=== PATIENT | male | born 1980 | race Caucasian/White ===

== ENCOUNTER 2018-10-02 15:19 | Outpatient (REF) | payer OTHER, SELFPAY ==
[2018-10-02 22:45] LABS: ALT 99 U/L (12-78); AST 127 U/L (15-37); Albumin 3.4 g/dL (3.4-5.0); Alkaline Phosphatase 103 U/L (46-116); Bilirubin, Direct 0.33 mg/dL (0.00-0.20); Bilirubin, Total 0.8 mg/dL (0.2-1.0); TSH (W/Ref FT4) 1.99 uIU/mL (0.358-3.74); Total Protein 6.7 g/dL (6.4-8.2)
== END 2018-10-02 15:39 ==
LOC: NCHCN 15:19
PROVIDERS: PCP Nurse Practitioner Family; Visit Provider Nurse Practitioner Family
DX: F41.8 Other specified anxiety disorders (principal); R79.89 Other specified abnormal findings of blood chemistry; L71.9 Rosacea, unspecified
CPT/HCPCS: 80076; 84443

== ENCOUNTER 2018-12-29 17:15 | Outpatient (REF) | payer OTHER, SELFPAY ==
[2018-12-29 20:58] LABS: Abs Immature Grans 0.01 k/cumm (0.0-0.09); Absolute Basophil Count 0.01 k/cumm (0.0-0.2); Absolute Eosinophil Count 0.05 k/cumm (0.0-0.7); Absolute Lymphocyte Count 1.13 k/cumm (1.2-3.4); Absolute Monocyte Count 0.65 k/cumm (0.11-0.7); Absolute Neutrophil Count 6.04 k/cumm (1.2-6.7); Basophils % 0.1; Eosinophils % 0.6; HCT 39.6 % (40.0-50.0); HGB 14.2 g/dL (13.5-17.5); Immature Grans % 0.1; Lymphocytes % 14.3; Mean Corp. HGB Concentration 35.9 g/dL (32.0-36.0); Mean Corpuscular Volume 103.1 fL (80-95); Mean Platelet Volume 10.2 fL (8.0-11.0); Monocytes % 8.2; Neutrophils % 76.7; Platelet Count 155 x1000/uL (130-400); RBC 3.84 m/cumm (4.50-6.00); RBC Distribution Width 14.9 % (11.8-14.1); White Blood Cell Count 7.89 k/cumm (4.4-10.8)
[2018-12-29 21:19] LABS: ALT 151 U/L (12-78); AST 163 U/L (15-37); Albumin 3.5 g/dL (3.4-5.0); Alkaline Phosphatase 173 U/L (46-116); Anion Gap 14.4 mmol/L (3-11); BUN 12 mg/dL (7-18); Bilirubin, Total 1.8 mg/dL (0.2-1.0); CO2 24.6 mmol/L (21.0-32.0); CREATININE 1.02 mg/dL (0.70-1.30); Calcium 9.3 mg/dL (8.5-10.1); Chloride 98 mmol/L (98-107); Glucose 95 mg/dL (70-100); Potassium 4.1 mmol/L (3.5-5.1); Sodium 137 mmol/L (136-145); TSH 3.06 uIU/mL (0.358-3.74); Total Protein 7.2 g/dL (6.4-8.2)
[2018-12-29 22:15] LABS: ETHANOL BLOOD < 3.0 mg/dL (<3)
== END 2018-12-29 17:35 ==
LOC: NCHCN 17:15
PROVIDERS: PCP Nurse Practitioner Family; Visit Provider Nurse Practitioner Family
DX: F10.10 Alcohol abuse, uncomplicated (principal)
CPT/HCPCS: 80053; 80320; 84443; 85025

== ENCOUNTER 2019-06-10 13:09 | Inpatient (IN) | payer OTHER, SELFPAY ==
[2019-06-10] VITALS (73 sets, daily range): BP systolic 101–141; BP diastolic 49–102; PULSE 66–173; RESP 11–25; TEMP 36.6–36.9; O2SAT 92–99
[2019-06-10] MEDS: LORazepam 2 MG/ML VIAL ×3 (14:10→19:55)
[2019-06-10 14:21] LABS: Abs Immature Grans 0.01 k/cumm (0.0-0.09); Absolute Basophil Count 0.02 k/cumm (0.0-0.2); Absolute Eosinophil Count 0.08 k/cumm (0.0-0.7); Absolute Lymphocyte Count 0.87 k/cumm (1.2-3.4); Absolute Monocyte Count 0.83 k/cumm (0.11-0.7); Absolute Neutrophil Count 6.76 k/cumm (1.2-6.7); Basophils % 0.2; Eosinophils % 0.9; HCT 39.1 % (40.0-50.0); HGB 13.5 g/dL (13.5-17.5); Immature Grans % 0.1; Lymphocytes % 10.2; Mean Corp. HGB Concentration 34.5 g/dL (32.0-36.0); Mean Corpuscular Hemoglobin 35.1 pg (27.0-33.0); Mean Corpuscular Volume 101.6 fL (80-95); Mean Platelet Volume 9.8 fL (8.0-11.0); Monocytes % 9.7; Neutrophils % 78.9; Platelet Count 160 x1000/uL (130-400); RBC 3.85 m/cumm (4.50-6.00); RBC Distribution Width 11.6 % (11.8-14.1); White Blood Cell Count 8.57 k/cumm (4.4-10.8)
[2019-06-10 14:30] LABS: ALT 139 U/L (16-63); AST 224 U/L (15-37); Albumin 3.2 g/dL (3.4-5.0); Alkaline Phosphatase 114 U/L (46-116); Anion Gap 12.2 mmol/L (3-11); BUN 6 mg/dL (7-18); CO2 26.8 mmol/L (21.0-32.0); CREATININE 0.77 mg/dL (0.70-1.30); Calcium 8.8 mg/dL (8.5-10.1); Chloride 99 mmol/L (98-107); Glucose 106 mg/dL (74-106); Magnesium 1.9 mg/dL (1.8-2.4); Potassium 3.3 mmol/L (3.5-5.1); Sodium 138 mmol/L (136-145); Total Protein 6.8 g/dL (6.4-8.2)
[2019-06-10] MEDS: MAGNESIUM SULFATE 8.12 MEQ, MULTIVITAMIN 10 ML, THIAMINE 100 MG, FOLIC ACID 1 MG in Nor... 168.867 MG IV (14:31)
[2019-06-10 14:40] LABS: ETHANOL BLOOD < 3.0 mg/dL (<3)
--- NOTE | 2019-06-10 16:01 | PDOC.MHCN_ITS ---
Date of service: 06/10/19 Time of Service: 15:46 Mental Health Crisis Note Presenting Issue How did you arrive at the ED and why did you come: Patient arrives to [facility] ED with chief complaint of nausea / shaking and issues in relation to ETOH withdrawal. Precipitating Factors Patient is a 38yo male with longstanding history of alcoholism (20+years). Patient reports that he consumes 2-3 glasses of wine per day and openly acknowledges that his alcoholism has reached the point where his general level of functioning has been compromised. He is currently seeking regular SA counseling / IOP referral and is not interesting in going back into rehab at time of assessment (Note: last reported rehab placement January 2019, [facility]). He denies current suicidal ideation, intent or plan and has no reported history of self-harm attempts or in-patient psychiatric treatment. Disposition BEHAVIOR: Appropriate in all interactions EYE CONTACT: Avoidant MOOD: Dysphoric / subdued AFFECT: Congruent to mood APPETITE: No reported issues SLEEP(trouble falling/staying asleep: No reported issues Plan Per request from patient, an SA/IOP referral through [facility] will be submitted and outreach will be scheduled once the information has been processed. Patient was provided additional resource lists - [place] [facility], [facility], [facility] Emergency Services contact information. Signature Clinician's Name/Title: Salomon Rubio, [facility] Emergency Clinician
--- NOTE | 2019-06-10 16:04 | ED.GENADUL_ITS ---
Discharge Plan Disposition Patient Disposition: [facility] INPATIENT Condition: Fair Discharge Details Chief Complaint: ETOHWithdr Clinical Impression: Alcohol withdrawal Admit Date/Time: 06/10/19 18:20 Admit Provider: Martin Dewitt Attending Provider: Martin Dewitt Primary Care Provider: Chasity Teixeira ED Provider: Sailaja Cochran Discharge Data Discharge Date/Time-TO BE ENTERED AT DEPARTURE: 06/10/19 21:28 Discharge Physician: Sailaja Cochran Medical Decision Making <ANTONY Nguyen - Last Filed: 06/12/19 21:30> This is a 38-year-old patient who presents for alcohol withdrawal. Patient admits to 2 drinks of wine daily although clearly has significant tremor and withdrawal symptoms at this time. Patient reports he has required detox in the past most recently in the summer. Patient reports he remained sober for approximately 2 weeks then began drinking smaller quantities. Patient reports he is drinking smaller quantities than prior to his recent detox however reports he did have a syncopal episode today and awoke in the bathtub laying flat. Patient denies obvious headache at this time. Patient reports his last drink was last evening. Patient is seeking alcohol detox. He is not very interested in inpatient detox but rather outpatient management. Patient is willing to consent to speaking with mental health regarding anxiety and arranging out patient counselors. Patient willing to speak with resource recovery engineer. Patient denies any significant medical concerns at this time. Denies chest pain difficulty breathing shortness breath or wheezing. Patient denies any fevers or chills. No recent upper respiratory symptoms. Patient provided Ativan 2 mg upon initial evaluation after he is noted to have hypertension as well as tremors on exam. Patient is also feeling quite nauseous at this time. No abdominal pain on exam. Breath sounds are clear. Patient speech is clear. He is accompanied by his father whom he lives with. Mental he alth and recovery special evaluations initiated. CIWA initiated. Patient reevaluated. Pending banana bag completion. Patient is still feeling quite tremulous and does not feel ready for discharge would rather continue oral fluids and Ativan. However patient does not want inpatient admission or detox placement. Spoke with mental health who will refer patient to outpatient programs. <Sailaja Cochran DO - Last Filed: 06/10/19 22:39> 1600 --please see Angle Arthur's note for initial presentation and plan. Patient is a 38-year-old male with a history of alcohol abuse presents with anxiety, nausea and shaking over the past 5 days. Patient states he generally drinks 4 to 5 glasses of wine daily for the past 5 years. States he has been decreasing this over the past week because he wants to stop drinking alcohol. He states he went to detox in [place] in January but started drinking shortly after discharge from there. Patient is no longer living with his and children since January and has been staying with his parents. He states he has thought about suicide in the past approximately 1 month ago in which she thought about taking a shot gun to his head. He does not currently have access to firearms in his residence. He denies current suicidal or homicidal ideation. He denies any visual or auditory hallucinations. Patient was given a banana bag and dose of Ativan shortly after arrival. His BP was mildly hypertensive but has had a normal heart rate. Patient admitted to a syncopal episode in the shower today in which he was standing under hot water and looked up and became dizzy and fell back. He denies any injury or pain due to this episode. He states he has not eaten for several days. Labs reviewed and note a potassium of 3.3, chronically elevated liver enzymes with moderate increase in AST. Alcohol level 0. He states his last drink was 8 PM last night. Case was endorsed to follow-up on CT head, EKG and patient response after finishing banana bag. Patient had declined admission since arrival and would rather go home with medications. 1644 --CT head negative. EKG notes a rate of 72, sinus with no acute ST-T wave ischemic changes. Upon my assessment, patient states he feels better. His heart rate and blood pressure within normal limits. He appears mildly tremulous but family states that this is much improved compared to how he has been for the past few days. He has no focal deficits or evidence of trauma on exam. Will give another dose of Ativan and a tray of food and reassess. Patient again states he does not want inpatient admission and prefer to go home with medications to help with detox. He was evaluated by mental health and legal recovery specialist here and was provided with outpatient detox information. 1809 --called to room for reevaluation as family states that patient is hallucinating. Family noted pt attempting to pet what he thought was their dog in the room. Patient had also thought that he was at a store and not at the hospital. Concern for worsening withdrawal. Discussed recommendations for admission and patient and family are agreeable with plan. 1819 --discussed with hospitalist -accepts patient for admission. 1929 --called to bedside for patient becoming somewhat restless and agitated. He was attempting to leave room to go out to his car to get his chew. He does not have a car here. He was able to be redirected and back onto the stretcher. He appeared to understand what we were trying to do and was agreeable with laying down. His heart rate was initially in the 140s and then decreased to 90s. Another dose of Ativan was given. 2114 --pt has remained calm and hemodynamically stable. Medical Records Medical records reviewed: Yes I reviewed the patient's medical records. Imaging Data Radiologic Study: Radiologist's impression: CT Head Without Contrast Exam date and time: 06/10/2019 4:20 PM Age: 38 years old Clinical history: Other: Syncope TECHNIQUE: Imaging protocol: Computed tomography of the head without contrast. Radiation optimization: All CT scans at this facility use at least one of these dose optimization techniques: automated exposure control; mA and/or kV adjustment per patient size (includes targeted exams where dose is matched to clinical indication); or iterative reconstruction. COMPARISON: No relevant prior studies available. FINDINGS: Brain: The ventricles and the cortical sulci are within normal limits. There is no evidence of acute hemorrhage, mass or shift. There is no evidence of an acute cortical or major vascular territory infarct. No abnormal extra-axial collections are identified. Ventricles: No significant ventricular enlargement/hydrocephalus. Bones/joints: There is no acute bony abnormality Sinuses: Retention cysts are seen in the left maxillary antrum. There is minimal sinus mucoperiosteal thickening and leftward deviation of the nasal septum. There is no evidence of discrete soft tissue mass or polyp within the nasal cavity. There is no significant sinus opacification or fluid level. Mastoid air cells: No significant mastoid opacification Soft tissues: Subcutaneous soft tissues are unremarkable IMPRESSION: No acute findings. Lab Data Lab results reviewed: Yes I reviewed the patient's lab results. Labs: Laboratory Tests Range/Units 06/10/19 06/10/19 06/10/19 14:13 14:13 14:13 WBC (4.4-10.8) k/cumm 8.57 RBC (4.50-6.00) m/cumm 3.85 L Hgb (13.5-17.5) g/dL 13.5 Hct (40.0-50.0) % 39.1 L MCV (80-95) fL 101.6 H MCH (27.0-33.0) pg 35.1 H MCHC (32.0-36.0) g/dL 34.5 RDW (11.8-14.1) % 11.6 L Plt Count (130-400) x1000/uL 160 MPV (8.0-11.0) fL 9.8 Immature Gran % 0.1 Neutrophils % 78.9 Lymphocytes % 10.2 Monocytes % 9.7 Eosinophils % 0.9 Basophils % 0.2 Absolute Neutrophils (1.2-6.7) k/cumm 6.76 H Absolute Lymphocytes (1.2-3.4) k/cumm 0.87 L Absolute Monocytes (0.11-0.7) k/cumm 0.83 H Absolute Eosinophils (0.0-0.7) k/cumm 0.08 Absolute Basophils (0.0-0.2) k/cumm 0.02 Sodium (136-145) mmol/L 138 Potassium (3.5-5.1) mmol/L 3.3 L Chloride (98-107) mmol/L 99 Carbon Dioxide (21.0-32.0) mmol/L 26.8 Anion Gap (3-11) mmol/L 12.2 H BUN (7-18) mg/dL 6 L Creatinine (0.70-1.30) mg/dL 0.77 Estimated GFR/1.73 m2 (mL/min/1.73m2) >= 60.00 Glucose (74-106) mg/dL 106 Calcium (8.5-10.1) mg/dL 8.8 Magnesium (1.8-2.4) mg/dL 1.9 Total Bilirubin (0.2-1.0) mg/dL 1.0 AST (15-37) U/L 224 H ALT (16-63) U/L 139 H Alkaline Phosphatase (46-116) U/L 114 Total Protein (6.4-8.2) g/dL 6.8 Albumin (3.4-5.0) g/dL 3.2 L Ethyl Alcohol (<3) mg/dL < 3.0 ECG Data Attestation: I personally reviewed and interpreted this ECG (s) as follows: Interpretation: Rate of 72, sinus, no acute ST elevation or depression. WV 136. QTc 462. QRS 84. HPI <ANTONY Nguyen - Last Filed: 06/12/19 21:30> General Date/Time Provider Initiated Documentation: 06/10/19 13:14 . HPI Narrative: This is a 38-year-old patient who presents for alcohol detox. Patient admits to drinking 2 glasses of wine a day however he presents with obvious tremor and hypertension and I suspect he is consuming more than 2 glasses of wine daily. Patient is accompanied by his father whom he lives with. Patient reports that today he had a syncopal episode while showering and awoke laying in the tub. Patient denies obviously striking his head. Patient denies headache or dizzi ness at this time. Patient reports his last drink was last night. Patient does admit to mild abdominal discomfort which is intermittent as well as nausea. Patient does admit to diarrhea. Patient denies use of any other drugs. Patient does report he has been to detox in the past, over the summer, remained sober for approximately 2 weeks and he reports since that time he has been drinking less than prior to going to detox however still is concerned with requiring detox at this time. Patient is not very interested in inpatient detox programs rather he is more interested in outpatient detox program. Patient does report he has been to AA meetings in the past. Patient denies any other medical concerns or complaints. Patient denies any neck or back pain after fall. Patient denies seizure activity Related Data Home Medications Medication Instructions Recorded Confirmed ondansetron 4 mg PO TID PRN PRN #15 tabef 12/16/16 sertraline [Zoloft] 100 mg PO DAILY 06/10/19 06/10/19 Previous Rx's Medication Instructions Recorded ondansetron 4 mg PO TID PRN PRN #15 tabef 12/16/16 Allergies Allergy/AdvReac Type Severity Reaction Status Date / Time No Known Allergies Allergy Unverified 06/10/19 13:17 General Stated Complaint: ETOHWithdr HIMA: 3 Review of Systems <ANTONY Nguyen - Last Filed: 06/12/19 21:30> All systems reviewed & are unremarkable except as noted in HPI and below Constitutional Constitutional: Denies chills, Denies fatigue, Denies fever(s), Denies headache(s) and Denies malaise ENT Ears, Nose, Mouth, and Throat: Denies headache(s) and Denies neck pain Cardiovascular Cardiovascular: Denies chest pain Respiratory Respiratory: Denies cough, Denies pain on inspiration and Denies pain with cough Gastrointestinal Gastrointestinal: Reports abdominal pain, Denies diarrhea, Reports nausea and Denies vomiting Genitourinary Genitourinary: Denies hematuria, Denies urinary frequency and Denies urinary urgency Musculoskeletal Musculoskeletal: Denies back pain, Denies neck pain and Denies radiating pain into limb Integumentary/Breasts Skin/Breast: Denies rash Neurologic Neurologic: Denies headache(s) Endocrine Endocrine: Denies fatigue PFSH <ANTONY Nguyen - Last Filed: 06/12/19 21:30> Medical History (Updated 06/11/19 @ 18:48 by Luis Felipe Ramirez) Alcohol abuse (Chronic) Major depression, chronic (Chronic) Social History Smoking/Tobacco Use Status: Never Alcohol Intake: current Alcohol Intake frequency: 3 or more drinks per day Alcohol type: wine Drug use: Never Substance use type: does not use Do you feel safe at home: Yes Do you feel safe in your relationship?: Yes Exam <ANTONY Nguyen - Last Filed: 06/12/19 21:30> Narrative Exam Narrative: CONST: in no acute distress. Alert and alert. HENMT: Head nomocephalic, normal to inspection. Atraumatic. Hearing grossly normal. External ear canal no erythema or swelling. TM normal bilaterally. Nose normal to inspection. No rhinnorhea. Normal facial exam. Oral mucosa normal. Tounge normal. Dentition normal. Normal posterior oropharynx. Uvula midline. EYES: General normal appearance. Alignment normal. Eyelids normal. Conjunctiva normal. Sclera normal. PERRL. NECK: Normal visual inspection. FROM. No lymphadenopathy. Trachea midline. No Midline tenderness. CHEST: Normal insepection of the chest. RESP: Normal respiratory effort. Speaking full sentences. No cough. No wheezing. No retractions. Clear to auscaltation. Breath sound equal and present bilaterally. CARDIO: No JVD. Normal PMI. Regular Rate. Regular Rhythm. Normal peripheral pulses. GI: Normal inspection of abdomen. No distension. Soft. Nontender. Bowel sounds present in all 4 quadrants. No rebound. No gaurding. MUSCULOSKELETAL: Normal Gait. FROM of all extremities. Distal neurovascularly intact. Sensation intact distally. Tremulous. PSYCH: Normal affect. Cooperative. Course <ANTONY Nguyen - Last Filed: 06/12/19 21:30> Vital Signs Vital signs: Vital Signs Temperature 36.6 C 06/10/19 13:14 Pulse 88 06/10/19 13:14 Respiratory Rate 16 06/10/19 13:14 Blood Pressure 139/101 H 06/10/19 13:14 Pulse Oximetry 98 06/10/19 13:14 Temperature 36.6 C 06/10/19 13:14 Temperature Source Temporal Artery Scan 06/10/19 13:14 Pulse 68 06/10/19 15:45 Pulse 71 06/10/19 15:45 Respiratory Rate 15 06/10/19 15:45 Respiratory Effort Non-Labored 06/10/19 13:14 Respiratory Pattern Normal 06/10/19 13:14 Blood Pressure 103/81 06/10/19 15:45 Blood Pressure Mean 86 06/10/19 15:45 Blood Pressure Position Sitting 06/10/19 13:14 Pulse Oximetry 99 06/10/19 15:51 Oxygen Delivery Method Room Air 06/10/19 15:51 Oxygen Flow Rate 0 06/10/19 15:51 Lab/Test Results Lab/Test Results: Laboratory Tests Range/Units 06/10/19 06/10/19 06/10/19 14:13 14:13 14:13 WBC (4.4-10.8) k/cumm 8.57 RBC (4.50-6.00) m/cumm 3.85 L Hgb (13.5-17.5) g/dL 13.5 Hct (40.0-50.0) % 39.1 L MCV (80-95) fL 101.6 H MCH (27.0-33.0) pg 35.1 H MCHC (32.0-36.0) g/dL 34.5 RDW (11.8-14.1) % 11.6 L Plt Count (130-400) x1000/uL 160 MPV (8.0-11.0) fL 9.8 Immature Gran % 0.1 Neutrophils % 78.9 Lymphocytes % 10.2 Monocytes % 9.7 Eosinophils % 0.9 Basophils % 0.2 Absolute Neutrophils (1.2-6.7) k/cumm 6.76 H Absolute Lymphocytes (1.2-3.4) k/cumm 0.87 L Absolute Monocytes (0.11-0.7) k/cumm 0.83 H Absolute Eosinophils (0.0-0.7) k/cumm 0.08 Absolute Basophils (0.0-0.2) k/cumm 0.02 Sodium (136-145) mmol/L 138 Potassium (3.5-5.1) mmol/L 3.3 L Chloride (98-107) mmol/L 99 Carbon Dioxide (21.0-32.0) mmol/L 26.8 Anion Gap (3-11) mmol/L 12.2 H BUN (7-18) mg/dL 6 L Creatinine (0.70-1.30) mg/dL 0.77 Estimated GFR/1.73 m2 (mL/min/1.73m2) >= 60.00 Glucose (74-106) mg/dL 106 Calcium (8.5-10.1) mg/dL 8.8 Magnesium (1.8-2.4) mg/dL 1.9 Total Bilirubin (0.2-1.0) mg/dL 1.0 AST (15-37) U/L 224 H ALT (16-63) U/L 139 H Alkaline Phosphatase (46-116) U/L 114 Total Protein (6.4-8.2) g/dL 6.8 Albumin (3.4-5.0) g/dL 3.2 L Ethyl Alcohol (<3) mg/dL < 3.0 Sign Out <ANTONY Nguyen - Last Filed: 06/12/19 21:30> Sign Out Data: Sign Out Comment: Signed out pending IV fluid completion, reevaluation and discharge Last updated by Chasity Ontiveros PA at 06/10/19 16:09
--- NOTE | 2019-06-10 16:25 | DI.CT_ITS ---
EXAM: CT HEAD WO CLINICAL HISTORY: syncope TECHNIQUE: The exam was performed according to the usual protocol without contrast. COMPARISON: No exams were available for comparison FINDINGS: No intracranial hemorrhage, mass or infarct is seen. There is no evidence of skull fracture. The vent ricles are normal in size. There is a mucous retention at the floor of the left maxillary sinus and a retention cyst versus polyp anteriorly in the left maxillary sinus. IMPRESSION: No acute abnormality.
--- NOTE | 2019-06-10 16:44 | DI.VRAD_ITS ---
PROCEDURE INFORMATION: Exam: CT Head Without Contrast Exam date and time: 06/10/2019 4:20 PM Age: 38 years old Clinical history: Other: Syncope TECHNIQUE: Imaging protocol: Computed tomography of the head without contrast. Radiation optimization: All CT scans at this facility use at least one of these dose optimization techniques: automated exposure control; mA and/or kV adjustment per patient size (includes targeted exams where dose is matched to clinical indication); or iterative reconstruction. COMPARISON: No relevant prior studies available. FINDINGS: Brain: The ventricles and the cortical sulci are within normal limits. There is no evidence of acute hemorrhage, mass or shift. There is no evidence of an acute cortical or major vascular territory infarct. No abnormal extra-axial collections are identified. Ventricles: No significant ventricular enlargement/hydrocephalus. Bones/joints: There is no acute bony abnormality Sinuses: Retention cysts are seen in the left maxillary antrum. There is minimal sinus mucoperiosteal thickening and leftward deviation of the nasal septum. There is no evidence of discrete soft tissue mass or polyp within the nasal cavity. There is no significant sinus opacification or fluid level. Mastoid air cells: No significant mastoid opacification Soft tissues: Subcutaneous soft tissues are unremarkable IMPRESSION: No acute findings. Dictated and Authenticated by: Vandana Trent MD. Ordering:DEREK Gaspar MD
[2019-06-10] MEDS: Normal Saline 1,000 ML 150 ML IV ×2 (19:45→23:13)
[2019-06-10] MEDS: Nicotine 4 MG GUM (19:56)
--- NOTE | 2019-06-10 20:50 | HPE_ITS ---
Date of service: 06/10/19 Time of Service: 20:50 Assessment and Plan Assessment and plan (1) Alcohol withdrawal delirium: Start date: 06/10/19 Status: Acute Assessment and plan: This is a 38-year-old gentleman who was having delirium tremens with wrist of seizures with his alcohol withdrawal. He will be admitted to the ICU with close cardiac monitoring and IV hydration with sedation using the CIWA scale. Follow-up abnormal labs and supplement electrolytes as needed. (2) Alcoholic hepatitis without ascites: Status: Acute Assessment and plan: The patient liver functions are elevated compared to his baseline and he never had imaging of his liver which may be accomplished during this hospital stay if available. We did make sure he has had his hepatitis screen for other etiologies though he does not appear to have high risk for viral hepatitis. (3) Major depression, chronic: Status: Chronic Assessment and plan: Patient has been missed taking his sertraline starting and stopping the medication which is dangerous. He will be seen mental health for his alcohol abuse and depression once he clears his alcohol withdrawal. He was started on sertraline because of anxiety but has had suicidal ideation later this year. 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 He is with young children under the age of 10 and recently has from his because of his alcohol use. This occurred in late summer after he was admitted for inpatient treatment of alcohol abuse around January 04, 2019. This is the first time he received inpatient treatment of alcohol abuse. He attempted to go to but failed with a poor connection with his sponsor. He recently has been trying to drink less alcohol and has been having severe tremors and for the first time some delirium. He is accompanied by his father and his during my exam in the ED prior to admission to the ICU. They are very supportive of the patient's struggles with alcoholism but realizes struggling with alcoholism and depression with noncompliance being a problem with this patient. He did go to college and had an associates degree and forestry. As above he does chew tobacco but has never smoked tobacco. He does not eat well is very thin and has chronic alcoholic hepatitis with imaging to be done locally but never performed because of patient's noncompliance. He has had suicidal ideation during this last year with plans to use a gun to kill himself and has been on and off his antidepressant which may have exacerbated these fluctuations in mood. Review of Systems Narrative: 13 point review of systems otherwise unrevealing or stable. The patient is underweight and does not eat healthily but this is not changed dramatically according to the family. [facility] Medical History (Updated 06/10/19 @ 21:43 by Martin Dewitt) Alcohol abuse (Chronic) Major depression, chronic (Chronic) Social History Smoking/Tobacco Use Status: Never Alcohol Intake: current Alcohol Intake frequency: 3 or more drinks per day Alcohol type: wine Drug use: Never Substance use type: does not use Do you feel safe at home: Yes Do you feel safe in your relationship?: Yes Meds Home Medications and Allergies Home Medications Medication Instructions Recorded Confirmed Type ondansetron 4 mg PO TID PRN PRN #15 tabef 12/16/16 Rx sertraline [Zoloft] 100 mg PO DAILY 06/10/19 06/10/19 History Allergies Allergy/AdvReac Type Severity Reaction Status Date / Time No Known Allergies Allergy Unverified 06/10/19 13:17 Exam Narrative Exam Narrative: General: Patient is thin and appears older than stated age, he is not alert to place or time and may be person though he seems to recognize his family. He is reaching out in front of him as if he is reaching for something in the air. He is in no acute distress. HEENT: Normocephalic, sparse owen and thinning hair, eyes with pupils equal and reactive light symmetrically with extraocular movement intact and sclera anicteric. Oropharynx with slightly dry oral mucosa. Neck: Supple without JVD. No auscultated bruits. Back: Stooped posture with no tenderness. Lungs: Fair aeration and clear to auscultation percussion with no adventitious sounds. Normal inspiratory to expiratory phase ratio. Heart: Regular rate and rhythm with no murmurs gallops appreciated. Abdomen: Scaphoid contour, soft and nontender to palpation with no palpable hepatosplenomegaly. Genitalia and rectal: Exam deferred. Extremities: Without clubbing, cyanosis or pitting edema. Capillary refill is fair with peripheral pulses intact. Skin: Actinic changes over sun exposed areas with patient being fair skinned but no suspicious lesions with limited exam having patient closed during exam. Slightly pale, warm and dry. No rashes. Neuro: Cranial nerves II through XII appear to be grossly intact, no focalizing motor deficits. Slight resting tremor but no clonus. Psych: Patient is delirious and is stating that he sees things and is using objects as if they are his tools at home or his hunting rifle. Results Imaging Imaging Studies: Exam(s) PROCEDURE INFORMATION: Exam: CT Head Without Contrast Exam date and time: 06/10/2019 4:20 PM Age: 38 years old Clinical history: Other: Syncope TECHNIQUE: Imaging protocol: Computed tomography of the head without contrast. Radiation optimization: All CT scans at this facility use at least one of these dose optimization techniques: automated exposure control; mA and/or kV adjustment per patient size (includes targeted exams where dose is matched to clinical indication); or iterative reconstruction. COMPARISON: No relevant prior studies available. FINDINGS: Brain: The ventricles and the cortical sulci are within normal limits. There is no evidence of acute hemorrhage, mass or shift. There is no evidence of an acute cortical or major vascular territory infarct. No abnormal extra-axial collections are identified. Ventricles: No significant ventricular enlargement/hydrocephalus. Bones/joints: There is no acute bony abnormality Sinuses: Retention cysts are seen in the left maxillary antrum. There is minimal sinus mucoperiosteal thickening and leftward deviation of the nasal septum. There is no evidence of discrete soft tissue mass or polyp within the nasal cavity. There is no significant sinus opacification or fluid level. Mastoid air cells: No significant mastoid opacification Soft tissues: Subcutaneous soft tissues are unremarkable IMPRESSION: No acute findings. Dictated and Authenticated by: Vandana Trent MD. Labs Result diagrams: 06/10/19 14:13 06/10/19 14:13 Labs: Laboratory Results - last 24 hr 06/10/19 06/10/19 06/10/19 14:13 14:13 14:13 WBC 8.57 RBC 3.85 L Hgb 13.5 Hct 39.1 L MCV 101.6 H MCH 35.1 H MCHC 34.5 RDW 11.6 L Plt Count 160 MPV 9.8 Immature Gran % 0.1 Neutrophils % 78.9 Lymphocytes % 10.2 Monocytes % 9.7 Eosinophils % 0.9 Basophils % 0.2 Absolute Neutrophils 6.76 H Absolute Lymphocytes 0.87 L Absolute Monocytes 0.83 H Absolute Eosinophils 0.08 Absolute Basophils 0.02 Sodium 138 Potassium 3.3 L Chloride 99 Carbon Dioxide 26.8 Anion Gap 12.2 H BUN 6 L Creatinine 0.77 Estimated GFR/1.73 m2 >= 60.00 Glucose 106 Calcium 8.8 Magnesium 1.9 Total Bilirubin 1.0 AST 224 H ALT 139 H Alkaline Phosphatase 114 Total Protein 6.8 Albumin 3.2 L Ethyl Alcohol < 3.0 Last Vital Signs Temp 36.6 C 06/10/19 13:14 Pulse 80 06/10/19 18:45 Resp 16 06/10/19 18:50 BP 116/72 06/10/19 18:45 Pulse Ox 92 L 06/10/19 18:50
[2019-06-10] MEDS: LORazepam 1 MG TAB PO/SL (21:54)
[2019-06-10 23:13] LABS: PHOSPHORUS 3.8 mg/dL (2.6-4.7)
[2019-06-11] VITALS (35 sets, daily range): BP systolic 113–129; BP diastolic 72–95; PULSE 65–104; RESP 12–19; TEMP 36.6–37; O2SAT 96–99
[2019-06-11] MEDS: LORazepam 2 MG/ML VIAL IVP ×3 (01:20→19:58)
[2019-06-11 08:47] LABS: HCT 35.4 % (40.0-50.0); Mean Corp. HGB Concentration 33.9 g/dL (32.0-36.0); Mean Corpuscular Hemoglobin 35.4 pg (27.0-33.0); Mean Corpuscular Volume 104.4 fL (80-95); Platelet Count 142 x1000/uL (130-400); RBC 3.39 m/cumm (4.50-6.00); RBC Distribution Width 11.7 % (11.8-14.1); White Blood Cell Count 5.69 k/cumm (4.4-10.8)
[2019-06-11 08:48] LABS: Albumin 2.5 g/dL (3.4-5.0); BUN 10 mg/dL (7-18); CREATININE 0.74 mg/dL (0.70-1.30); Calcium 7.7 mg/dL (8.5-10.1); Glucose 86 mg/dL (74-106); Total Protein 5.5 g/dL (6.4-8.2)
[2019-06-11 08:49] LABS: ALT 94 U/L (16-63); AST 128 U/L (15-37); Alkaline Phosphatase 89 U/L (46-116); Anion Gap 9.9 mmol/L (3-11); Bilirubin, Direct 0.38 mg/dL (0.00-0.20); CO2 26.1 mmol/L (21.0-32.0); Chloride 105 mmol/L (98-107); Magnesium 1.9 mg/dL (1.8-2.4); Potassium 3.3 mmol/L (3.5-5.1); Sodium 141 mmol/L (136-145)
[2019-06-11] MEDS: Thiamine 100 MG TAB PO (09:15)
[2019-06-11] MEDS: Folic Acid 1 MG TAB PO (09:15)
[2019-06-11] MEDS: Multivitamin TAB 1 TAB PO (09:15)
[2019-06-11] MEDS: Sertraline 50 MG TAB 100 MG PO (09:16)
--- NOTE | 2019-06-11 10:22 | PDOC.CMIN ---
- If Service Date Differs Date of service: 06/11/19 Time of Service: 10:22 Care Management Initial Assess REASON FOR HOSPITALIZATION:: alcohol withdrawal delerium PAST MEDICAL HISTORY/PAST SURGICAL HISTORY:: Medical History (Updated 06/10/19 @ 21:43 by Martin Dewitt). Alcohol abuse (Chronic). Major depression, chronic (Chronic) PREVIOUS FUNCTIONAL STATUS/SOCIAL/FAMILY SUPPORTS:: Santiago lives with his parents in a single family home in [place], [place]. 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 He states he enjoys his work.Santiago is independent at baseline with all care and activities. He does not receive any community services at this time. CURRENT FUNCTIONAL STATUS:: Santiago was sitting up in bed with his father present. He was agreeable to conversing with CM but was very guarded with his responses and unable or unwilling to share details of his life or his problems with alcohol.Eye contact was brief. He did state that he had been through a program at [facility] in the spring and that it did not meet his needs. He stated that he plans to go into an outpatient program through [facility] when he leaves here. His Waterproof Coating Machine Tender Anika Park is assisting with that. ADVANCE DIRECTIVES:: none on file Has patient been provided with information about the portal?: No Did the patient sign up for the portal?: No CODE STATUS:: Full Code INSURANCE COVERAGE / FINANCIAL ISSUES:: GISC/CIGNA CURRENT HOME/COMMUNITY SERVICES/EQUIPMENT:: none PRIMARY CARE PHYSICIAN:: Chasity Teixeira POTENTIAL DISCHARGE NEEDS:: Substance abuse treatment and support, follow up with PCP and discharge plan of care PATIENT/FAMILY EDUCATION NEEDS:: Discharge plan, limitations, follow up and Ask Me Three. TRANSPORTATION:: via private vehicle with family/friends PLAN:: Santiago will be discharged home when medically stable. He plans to attend an outpatient substance abuse program (IOP) through [facility] when discharged.He also has been wiorking with a Waterproof Coating Machine Tender and plans to continue to do so post-discharge. He will transport via private vehicle with family. CM will continue to provide support to patient, family and discharge planning concerns.
--- NOTE | 2019-06-11 12:37 | PHARADMIT ---
Admission Pharmacy Clinical Review alcohol withdrawal, hallucinations Code Status Full Code Current Weight 70.7 kg Renally Cleared and Narrow Therapeutic Index Meds Crcl ~98 mL/min current meds okay QTc Value / Action Taken QTc 462 BP Control, Fever BP 113/83 afebrile Electrolytes reviewed K+ 3.3 (MD scheduled potassium, watch labs) DVT Prophylaxis none Opiate Usage / Scheduled Bowel Regimen Ordered no/no Plt/SCr for Heparin / Enoxaparin plt 142 SCr 0.74 INR for Warfarin n/a H/H stable, WBC/Bands h/h 12.0/35.4 WBC 5.69 Antibiotic appropriateness none Cultures and Sensitivities none Surgical ABX d/c within 24 hr n/a DM control / Insulin Dosing Bg 86 none Heart Failure (Check EF%) (AVIVA's, B-Block, Diuretics) none IV to PO Switch n/a Home Meds Reviewed yes Home Meds Not Ordered ondansetron(unconfirmed/PRN) Comments AST 128/ALT 94 (improving)
--- NOTE | 2019-06-11 12:51 | W.PM.PROGNOT ---
Date of Service Date of service: 06/11/19 Time of Service: 12:51 Assessment and Plan Assessment and plan (1) Alcohol withdrawal delirium: Status: Acute Assessment and plan: Continue low-dose Librium for the next 48 hours. Use Ativan as per CIWA protocol. Continue vitamin supplementation with oral thiamine and multivitamin and folic acid. (2) Major depression, chronic: Status: Chronic Assessment and plan: Continue his current dose of sertraline 100 mg daily. There is been a reported history of worsening depression over the summer since his hospitalization for inpatient alcohol treatment. Apparently his has from him and taken his children. Patient is currently living with his parents. According to ER notes he has had thoughts of suicidal ideation as recent as a month ago with statements of putting a shotgun to his head. Prior to discharge I think the patient should be evaluated by mental health in terms of his mental stability. Currently he is not expressing any suicidal ideation. (3) Alcoholic hepatitis without ascites: Status: Acute Assessment and plan: His transaminitis is improving. We will continue to monitor his labs. (4) Hypokalemia: Status: Acute Assessment and plan: We will continue to give him IV fluids and supplement with potassium and his maintenance IV. We will also give him oral potassium supplementation and repeat his labs in the morning. Subjective Subjective Interval history since last seen: 38 yr old male w/ PMH alcoholism and alcohol withdrawal but no hx of seizures who also has depression. He presented to the ER in acute alcohol withdrawal w/ symptoms of anxiety, tremors, nausea and over the past 5 days. He also had a syncopal episode while in the shower yesterday. He reportedly had been drinking 4 to 5 glasses of wine per day for last several years until he went into inpatient alcohol treatment but was only able to maintain sobriety for two weeks. He reportedly is only drinking two large glasses of wine per day. His last drink was 8 pm last night. Initially he denied any hallucinations and after he was treated for his nausea and given iv fluids and a banana bag he felt better and wanted to go home. However while in the ER he developed visual hallucinations. He is now admitted for treatment of acute alcohol withdrawal. This morning he is alert and appropriate although he remains tremulous. His CIWA scale is 4 to 8. He is getting prn Ativan per CIWA scale. I am going to add programmed doses of Librium. The patient had CT of his head last night after his syncope and this showed no acute abnormalities. I interviewed the patient with his father present who also offered his input Exam Narrative Exam Narrative: Young male who appears to be disheveled and older than his stated age of 38. He is alert and oriented person place time and circumstance. He is not currently hallucinating. He is lying in bed in semi-bo position and conversing with his father who is sitting at his bedside. Lungs are clear to auscultation Heart regular rate and rhythm without murmur rub or gallop Abdomen soft nontender nondistended with no bruits no palpable masses or organomegaly. Extremities reveal resting tremors in both hands. Objective Objective Clinical Data: Abnormal lab results 06/10/19 06/10/19 06/11/19 Range/Units 14:13 14:13 05:30 RBC 3.85 L (4.50-6.00) m/cumm Hgb (13.5-17.5) g/dL Hct 39.1 L (40.0-50.0) % MCV 101.6 H (80-95) fL MCH 35.1 H (27.0-33.0) pg RDW 11.6 L (11.8-14.1) % Absolute Neutrophils 6.76 H (1.2-6.7) k/cumm Absolute Lymphocytes 0.87 L (1.2-3.4) k/cumm Absolute Monocytes 0.83 H (0.11-0.7) k/cumm Potassium 3.3 L 3.3 L (3.5-5.1) mmol/L Anion Gap 12.2 H (3-11) mmol/L BUN 6 L (7-18) mg/dL Calcium 7.7 L (8.5-10.1) mg/dL Conjugated Bilirubin 0.38 H (0.00-0.20) mg/dL AST 224 H 128 H (15-37) U/L ALT 139 H 94 H (16-63) U/L Total Protein 5.5 L (6.4-8.2) g/dL Albumin 3.2 L 2.5 L (3.4-5.0) g/dL 06/11/19 Range/Units 05:30 RBC 3.39 L (4.50-6.00) m/cumm Hgb 12.0 L (13.5-17.5) g/dL Hct 35.4 L (40.0-50.0) % MCV 104.4 H (80-95) fL MCH 35.4 H (27.0-33.0) pg RDW 11.7 L (11.8-14.1) % Absolute Neutrophils (1.2-6.7) k/cumm Absolute Lymphocytes (1.2-3.4) k/cumm Absolute Monocytes (0.11-0.7) k/cumm Potassium (3.5-5.1) mmol/L Anion Gap (3-11) mmol/L BUN (7-18) mg/dL Calcium (8.5-10.1) mg/dL Conjugated Bilirubin (0.00-0.20) mg/dL AST (15-37) U/L ALT (16-63) U/L Total Protein (6.4-8.2) g/dL Albumin (3.4-5.0) g/dL Vital Signs Temperature 37 C 06/11/19 07:35 Temperature Source Temporal Artery Scan 06/11/19 07:35 Pulse 72 06/11/19 10:00 Pulse 72 06/11/19 10:00 Respiratory Rate 12 06/11/19 10:00 Respiratory Effort 06/10/19 21:58 Respiratory Depth Normal 06/10/19 21:58 Respiratory Pattern Normal 06/10/19 21:58 Blood Pressure 113/83 06/11/19 10:00 Blood Pressure Mean 90 06/11/19 10:00 Blood Pressure Position Sitting 06/10/19 21:58 Pulse Oximetry 99 06/11/19 10:00 Oxygen Delivery Method Room Air 06/11/19 07:35 Oxygen Flow Rate 0 06/11/19 07:35 Pain Level 0 06/11/19 07:35 Intake & Output 06/10/19 06/11/19 06/11/19 23:59 11:59 23:59 Intake Total 1533.2 / 1533.2 1400 / 1400 Output Total 300 / 300 Balance 1533.2 / 1533.2 1100 / 1100 Weight 70.7 kg Intake: IV 1533.2 / 1533.2 1000 / 1000 Oral 400 / 400 Output: Urine 300 / 300 Other: Urine Color Dark Yasmine Urine Appearance Clear Urine Odor Strong Comment Random bladder scan due to patient not voiding since arrival in icu. Laboratory Results WBC 5.69 k/cumm (4.4-10.8) D 06/11/19 05:30 RBC 3.39 m/cumm (4.50-6.00) L 06/11/19 05:30 Hgb 12.0 g/dL (13.5-17.5) L 06/11/19 05:30 Hct 35.4 % (40.0-50.0) L 06/11/19 05:30 MCV 104.4 fL (80-95) H 06/11/19 05:30 MCH 35.4 pg (27.0-33.0) H 06/11/19 05:30 MCHC 33.9 g/dL (32.0-36.0) 06/11/19 05:30 RDW 11.7 % (11.8-14.1) L 06/11/19 05:30 Plt Count 142 x1000/uL (130-400) 06/11/19 05:30 MPV 10.0 fL (8.0-11.0) 06/11/19 05:30 Immature Gran % 0.1 06/10/19 14:13 Neutrophils % 78.9 06/10/19 14:13 Lymphocytes % 10.2 06/10/19 14:13 Monocytes % 9.7 06/10/19 14:13 Eosinophils % 0.9 06/10/19 14:13 Basophils % 0.2 06/10/19 14:13 Absolute Neutrophils 6.76 k/cumm (1.2-6.7) H 06/10/19 14:13 Absolute Lymphocytes 0.87 k/cumm (1.2-3.4) L 06/10/19 14:13 Absolute Monocytes 0.83 k/cumm (0.11-0.7) H 06/10/19 14:13 Absolute Eosinophils 0.08 k/cumm (0.0-0.7) 06/10/19 14:13 Absolute Basophils 0.02 k/cumm (0.0-0.2) 06/10/19 14:13 Sodium 141 mmol/L (136-145) 06/11/19 05:30 Potassium 3.3 mmol/L (3.5-5.1) L 06/11/19 05:30 Chloride 105 mmol/L (98-107) 06/11/19 05:30 Carbon Dioxide 26.1 mmol/L (21.0-32.0) 06/11/19 05:30 Anion Gap 9.9 mmol/L (3-11) 06/11/19 05:30 BUN 10 mg/dL (7-18) 06/11/19 05:30 Creatinine 0.74 mg/dL (0.70-1.30) 06/11/19 05:30 Estimated GFR/1.73 m2 >= 60.00 (mL/min/1.73m2) 06/11/19 05:30 Glucose 86 mg/dL (74-106) 06/11/19 05:30 Calcium 7.7 mg/dL (8.5-10.1) L 06/11/19 05:30 Phosphorus 3.8 mg/dL (2.6-4.7) 06/10/19 14:24 Magnesium 1.9 mg/dL (1.8-2.4) 06/11/19 05:30 Total Bilirubin 1.0 mg/dL (0.2-1.0) 06/11/19 05:30 Conjugated Bilirubin 0.38 mg/dL (0.00-0.20) H 06/11/19 05:30 AST 128 U/L (15-37) H 06/11/19 05:30 ALT 94 U/L (16-63) H 06/11/19 05:30 Alkaline Phosphatase 89 U/L (46-116) 06/11/19 05:30 Total Protein 5.5 g/dL (6.4-8.2) L 06/11/19 05:30 Albumin 2.5 g/dL (3.4-5.0) L 06/11/19 05:30 Ethyl Alcohol < 3.0 mg/dL (<3) 06/10/19 14:13
[2019-06-11] MEDS: Normal Saline Flush 10 ML SYR IVP (13:20)
[2019-06-11] MEDS: Potassium Chloride 20 MEQ TABCR PO ×2 (13:30→19:55)
[2019-06-11] MEDS: chlordiazePOXIDE 25 MG CAP PO ×2 (13:30→19:55)
[2019-06-11] MEDS: Nicotine 21 MG/24 HR PATCH TD (13:33)
--- NOTE | 2019-06-11 14:24 | CHAPLAIN ---
Santiago was resting in bed when I visited today, two shorts visits. He was quiet and responded to questions but did not seem interested in further conversation. He did appreciate the prayer shawl I brought to him. I asked if it would be okay to visit again tomorrow and he agreed.
[2019-06-11 17:04] LABS: Bilirubin Negative (Negative); Blood Negative (Negative); Clarity Clear (Clear); Glucose Negative (Negative); Ketones Negative (Negative); Leukocyte Esterase Negative (Negative); Nitrite Negative (Negative); Specific Gravity 1.015 (1.005-1.025)
[2019-06-11 17:14] LABS: *AMPHETAMINES SCREEN URINE Negative (Negative); *BARBITURATES SCREEN URINE Negative (Negative); *BENZODIAZEPINES SCREEN URINE Negative (Negative); Cannabinoids THC Negative (Negative); Cocaine Screen,Urine Negative (Negative); METHADONE URINE SCREEN Negative (Negative); OPIATES URINE SCREEN Negative (Negative)
[2019-06-11 17:16] LABS: Tricyclic Antidepressants Negative (Negative)
[2019-06-12] VITALS (22 sets, daily range): BP systolic 119–133; BP diastolic 83–94; PULSE 61–100; RESP 11–21; TEMP 36.6–37.2; O2SAT 97
[2019-06-12 07:11] LABS: Abs Immature Grans 0.01 k/cumm (0.0-0.09); Absolute Basophil Count 0.02 k/cumm (0.0-0.2); Absolute Eosinophil Count 0.15 k/cumm (0.0-0.7); Absolute Lymphocyte Count 0.83 k/cumm (1.2-3.4); Absolute Monocyte Count 0.66 k/cumm (0.11-0.7); Absolute Neutrophil Count 3.69 k/cumm (1.2-6.7); Basophils % 0.4; Eosinophils % 2.8; HCT 38.1 % (40.0-50.0); HGB 12.7 g/dL (13.5-17.5); Immature Grans % 0.2; Lymphocytes % 15.5; Mean Corp. HGB Concentration 33.3 g/dL (32.0-36.0); Mean Corpuscular Hemoglobin 34.9 pg (27.0-33.0); Mean Corpuscular Volume 104.7 fL (80-95); Mean Platelet Volume 9.9 fL (8.0-11.0); Monocytes % 12.3; Neutrophils % 68.8; Platelet Count 191 x1000/uL (130-400); RBC 3.64 m/cumm (4.50-6.00); RBC Distribution Width 11.8 % (11.8-14.1); White Blood Cell Count 5.36 k/cumm (4.4-10.8)
[2019-06-12 07:12] LABS: INR 1.1 (0.9-1.1); Prothrombin Time 10.8 sec (9.3-11.0)
[2019-06-12 07:21] LABS: ALT 74 U/L (16-63); AST 75 U/L (15-37); Albumin 2.6 g/dL (3.4-5.0); Alkaline Phosphatase 89 U/L (46-116); BUN 4 mg/dL (7-18); Bilirubin, Direct 0.25 mg/dL (0.00-0.20); Bilirubin, Total 0.6 mg/dL (0.2-1.0); CREATININE 0.62 mg/dL (0.70-1.30); Calcium 8.5 mg/dL (8.5-10.1); Chloride 105 mmol/L (98-107); Glucose 112 mg/dL (74-106); Magnesium 1.9 mg/dL (1.8-2.4); Potassium 3.7 mmol/L (3.5-5.1); Sodium 141 mmol/L (136-145); Total Protein 5.7 g/dL (6.4-8.2)
[2019-06-12] MEDS: Folic Acid 1 MG TAB PO (07:58)
[2019-06-12] MEDS: chlordiazePOXIDE 25 MG CAP PO ×3 (07:58→19:57)
[2019-06-12] MEDS: Sertraline 50 MG TAB 100 MG PO (07:58)
[2019-06-12] MEDS: Multivitamin TAB 1 TAB PO (07:59)
[2019-06-12] MEDS: Potassium Chloride 20 MEQ TABCR PO (07:59)
[2019-06-12] MEDS: Thiamine 100 MG TAB PO (07:59)
[2019-06-12] MEDS: Nicotine 21 MG/24 HR PATCH TD (08:01)
--- NOTE | 2019-06-12 10:52 | W.NUTCONSULT ---
Date of service: 06/12/19 Time of Service: 10:52 Nutritional Consult ASSESSMENT: 38 year old male in ICU for Alcohol Withdrawl and hypokalemia. Following Regular Diet with 75-100% meal consumption. Weight indicates mild obesity. At this time, not considered at nutritional risk. will follow prn. screen completed by Chanel Juarez MS, RD NUTRITIONAL DIAGNOSIS: Alcohol Withdrawl, hypokalemia MONITORING AND EVALUATION: will monitor weight and po intake trends and intervene as needed Time Spent in Nutritional Counseling and Treatment: 0 time face to face
--- NOTE | 2019-06-12 12:58 | DI.US_ITS ---
EXAM: US ABDOMEN CLINICAL HISTORY: transaminitis TECHNIQUE: Ultrasound performed using standard protocol. COMPARISON: ABDOMEN ULTRASOUND (P) from 12/16/2016 FINDINGS: Enlarged fatty liver is again noted. There are no focal liver lesions or biliary dilatation. Sludge is noted in the gallbladder. No stones are visible. There is no abnormal gallbladder wall thickeni ng, distention or sonographic Alfaro sign. The aorta, spleen, kidneys and pancreas are unremarkable. No free fluid is seen. IMPRESSION: Gallbladder sludge. Enlarged fatty liver.
--- NOTE | 2019-06-12 15:28 | PDOC.CMPRO ---
- If Service Date Differs Date of service: 06/12/19 Time of Service: 15:28 Care Management Progress Note S/O: Santiago was sitting up in bed when CM came to see him. His was visiting at the time and very little conversation appeared to be taking place. Santiago was looking away from his and did not answer her questions about his post-discharge plans. CM did not pursue any further conversation about discharge. Santiago states that he is feeling better. His CIWA scores remain low and his vital signs are stable. A: Santiago is a 38 year old young man admitted on 06/10/19 with alcohol withdrawal accompanied by hallucinations. P: Santiago will be discharged home when medically stable. He plans to attend an outpatient substance abuse program (IOP) through [facility] when discharged.He also has been working with a Assistant Casino Shift Manager and plans to continue to do so post-discharge. He will transport via private vehicle with family. CM will continue to provide support to patient, family and discharge planning concerns.
--- NOTE | 2019-06-12 18:06 | PGE_ITS ---
Date of Service Date of service: 06/12/19 Time of Service: 18:07 Assessment and Plan Assessment and plan (1) Alcoholic hepatitis without ascites: Status: Acute Assessment and plan: The abdominal ultrasound today was reassuring with no signs of cirrhosis. Fatty liver and gallbladder sludge. Abstinence from alcohol was reinforced. (2) Alcohol withdrawal delirium: Status: Acute Assessment and plan: CIWA scores have come down to 5. He has not required PRN lorazepam. He is on scheduled Librium. Probable discharge tomorrow. (3) Major depression, chronic: Status: Chronic Assessment and plan: Depression exacerbated by recent break-up with his . He certainly at risk for suicidal ideation which should be assessed prior to discharge. Subjective Subjective Interval history since last seen: Patient's withdrawal symptoms have improved. His tremor is markedly improved. His mother and father in the room and talking about treatment options going forward. He is currently living with him. 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 There is also concern about ongoing depression with recent break-up with his . Exam Narrative Exam Narrative: On exam he is intermittently tearful. He has notable rosacea around his nose and face. No respiratory difficulty lungs are clear heart regular no abdominal tenderness lower extremities no edema Objective Objective Clinical Data: Abnormal lab results 06/12/19 06/12/19 Range/Units 06:13 06:13 RBC 3.64 L (4.50-6.00) m/cumm Hgb 12.7 L (13.5-17.5) g/dL Hct 38.1 L (40.0-50.0) % MCV 104.7 H (80-95) fL MCH 34.9 H (27.0-33.0) pg Absolute Lymphocytes 0.83 L (1.2-3.4) k/cumm BUN 4 L (7-18) mg/dL Creatinine 0.62 L (0.70-1.30) mg/dL Glucose 112 H (74-106) mg/dL Conjugated Bilirubin 0.25 H (0.00-0.20) mg/dL AST 75 H (15-37) U/L ALT 74 H (16-63) U/L Total Protein 5.7 L (6.4-8.2) g/dL Albumin 2.6 L (3.4-5.0) g/dL Vital Signs Temperature 36.6 C 06/12/19 15:40 Temperature Source Temporal Artery Scan 06/12/19 15:40 Pulse 72 06/12/19 15:56 Pulse 77 06/12/19 15:56 Respiratory Rate 18 06/12/19 15:56 Respiratory Effort Non-Labored 06/12/19 15:40 Respiratory Depth Normal 06/12/19 15:40 Respiratory Pattern Normal 06/12/19 15:40 Blood Pressure 133/93 H 06/12/19 15:56 Blood Pressure Mean 101 06/12/19 15:56 Blood Pressure Position Sitting 06/11/19 19:45 Pulse Oximetry 97 06/12/19 07:42 Oxygen Delivery Method Room Air 06/12/19 07:41 Oxygen Flow Rate 0 06/12/19 07:41 Pain Level 0 06/12/19 15:40 Comment 06/11/19 12:42 Intake & Output 06/11/19 06/12/19 06/12/19 23:59 11:59 23:59 Intake Total 1522.667 / 2922.667 1758.667 / 1778.667 20 / 1778.667 Output Total 1050 / 1350 1974 Balance 472.667 / 1572.667 -216.333 / -196.333 20 / -196.333 Weight 71.2 kg Intake: IV 982.667 / 1982.667 958.667 / 958.667 Oral 540 / 940 800 / 820 20 / 820 Output: Urine 1050 / 1350 1974 Other: Urine Color Yellow Yellow Urine Appearance Clear Clear Urine Odor Normal None Comment voids to urinal. voids to urinal. patient has voided on MS x 2 in the past hour Voiding Methods Urinal Urinal Toilet Laboratory Results WBC 5.36 k/cumm (4.4-10.8) 06/12/19 06:13 RBC 3.64 m/cumm (4.50-6.00) L 06/12/19 06:13 Hgb 12.7 g/dL (13.5-17.5) L 06/12/19 06:13 Hct 38.1 % (40.0-50.0) L 06/12/19 06:13 MCV 104.7 fL (80-95) H 06/12/19 06:13 MCH 34.9 pg (27.0-33.0) H 06/12/19 06:13 MCHC 33.3 g/dL (32.0-36.0) 06/12/19 06:13 RDW 11.8 % (11.8-14.1) 06/12/19 06:13 Plt Count 191 x1000/uL (130-400) 06/12/19 06:13 MPV 9.9 fL (8.0-11.0) 06/12/19 06:13 Immature Gran % 0.2 06/12/19 06:13 Neutrophils % 68.8 06/12/19 06:13 Lymphocytes % 15.5 06/12/19 06:13 Monocytes % 12.3 06/12/19 06:13 Eosinophils % 2.8 06/12/19 06:13 Basophils % 0.4 06/12/19 06:13 Absolute Neutrophils 3.69 k/cumm (1.2-6.7) 06/12/19 06:13 Absolute Lymphocytes 0.83 k/cumm (1.2-3.4) L 06/12/19 06:13 Absolute Monocytes 0.66 k/cumm (0.11-0.7) 06/12/19 06:13 Absolute Eosinophils 0.15 k/cumm (0.0-0.7) 06/12/19 06:13 Absolute Basophils 0.02 k/cumm (0.0-0.2) 06/12/19 06:13 PT 10.8 sec (9.3-11.0) 06/12/19 06:13 INR 1.1 (0.9-1.1) 06/12/19 06:13 Sodium 141 mmol/L (136-145) 06/12/19 06:13 Potassium 3.7 mmol/L (3.5-5.1) 06/12/19 06:13 Chloride 105 mmol/L (98-107) 06/12/19 06:13 Carbon Dioxide 28.0 mmol/L (21.0-32.0) 06/12/19 06:13 Anion Gap 8.0 mmol/L (3-11) 06/12/19 06:13 BUN 4 mg/dL (7-18) L 06/12/19 06:13 Creatinine 0.62 mg/dL (0.70-1.30) L 06/12/19 06:13 Estimated GFR/1.73 m2 >= 60.00 (mL/min/1.73m2) 06/12/19 06:13 Glucose 112 mg/dL (74-106) H 06/12/19 06:13 Calcium 8.5 mg/dL (8.5-10.1) 06/12/19 06:13 Phosphorus 3.8 mg/dL (2.6-4.7) 06/10/19 14:24 Magnesium 1.9 mg/dL (1.8-2.4) 06/12/19 06:13 Total Bilirubin 0.6 mg/dL (0.2-1.0) 06/12/19 06:13 Conjugated Bilirubin 0.25 mg/dL (0.00-0.20) H 06/12/19 06:13 AST 75 U/L (15-37) H 06/12/19 06:13 ALT 74 U/L (16-63) H 06/12/19 06:13 Alkaline Phosphatase 89 U/L (46-116) 06/12/19 06:13 Total Protein 5.7 g/dL (6.4-8.2) L 06/12/19 06:13 Albumin 2.6 g/dL (3.4-5.0) L 06/12/19 06:13 Urine Color Yellow (Yellow) 06/11/19 16:45 Urine Clarity Clear (Clear) 06/11/19 16:45 Urine pH 7.0 (5-8) 06/11/19 16:45 Ur Specific Farner 1.015 (1.005-1.025) 06/11/19 16:45 Urine Protein Negative mg/dL (Negative) 06/11/19 16:45 Urine Ketones Negative mg/dL (Negative) 06/11/19 16:45 Urine Blood Negative (Negative) 06/11/19 16:45 Urine Nitrite Negative (Negative) 06/11/19 16:45 Urine Bilirubin Negative (Negative) 06/11/19 16:45 Urine Urobilinogen 4.0 EU/dL (Up TO 0.2) H 06/11/19 16:45 Ur Leukocyte Esterase Negative (Negative) 06/11/19 16:45 Urine Glucose Negative mg/dL (Negative) 06/11/19 16:45 Urine Opiates Screen Negative (Negative) 06/11/19 16:45 Urine Methadone Screen Negative (Negative) 06/11/19 16:45 Ur Barbiturates Screen Negative (Negative) 06/11/19 16:45 Ur Tricyclics Screen Negative (Negative) 06/11/19 16:45 Ur Amphetamines Screen Negative (Negative) 06/11/19 16:45 U Benzodiazepines Scrn Negative (Negative) 06/11/19 16:45 Urine Cocaine Screen Negative (Negative) 06/11/19 16:45 Ur THC Screen Negative (Negative) 06/11/19 16:45 Ethyl Alcohol < 3.0 mg/dL (<3) 06/10/19 14:13 Objective Narrative Objective Narrative: Abdominal ultrasound today showed fatty liver and some sludge in the gallbladder
[2019-06-13] VITALS: BP 125/87; PULSE 71; RESP 18; TEMP 36.6; O2SAT 97
[2019-06-13] MEDS: Nicotine 21 MG/24 HR PATCH TD (08:23)
[2019-06-13] MEDS: Sertraline 50 MG TAB 100 MG PO (08:24)
[2019-06-13] MEDS: chlordiazePOXIDE 25 MG CAP PO (08:24)
[2019-06-13] MEDS: Multivitamin TAB 1 TAB PO (08:24)
[2019-06-13] MEDS: Folic Acid 1 MG TAB PO (08:24)
[2019-06-13] MEDS: Thiamine 100 MG TAB PO (08:30)
--- NOTE | 2019-06-13 12:58 | CMDISCH_ITS ---
- If Service Date Differs Date of service: 06/13/19 Time of Service: 12:58 LACE Index Scoring Tool - Questions: Length of Stay (in days): 3 Acuity (Admit via E.D.?): Yes E.D. Visits: 1 - Answers: Total Score: 7 Risk of Readmission: Low Risk Care Management Discharge Reason for Hospitalization: alcohol withdrawal delerium Discharge Plan: Santiago will be discharged to his parents home where he has been staying. He plans to attend an intensive outpatient program for substance abuse through [facility]. He will follow up with his PCP, Chemical Worker and discharge plan of care. Santiago will transport with family via private vehicle. Patient/Family Education Needs: Discharge plan, limitations, follow up plan and Ask me Three. - MH Services (Omit if N/A) Current MH Services: None Referred to [facility] (ED embedded) welfare case worker?: No
--- NOTE | 2019-06-13 18:40 | W.PM.DS.N ---
Date of service: 06/13/19 Time of Service: 18:40 DS: Diagnosis Discharge Diagnosis (1) Alcoholic hepatitis without ascites: Status: Acute Asessment and Plan: LFTs have normalized. And a right upper quadrant ultrasound showed fatty liver and gallbladder sludge but no cirrhosis. (2) Alcohol withdrawal delirium: Status: Acute Asessment and Plan: He has completed withdrawal protocol. His CIWA scores have drifted down and he no longer requires PRN medication. Plan is to discontinue Librium and discharged to home. We discussed naltrexone therapy and he wanted to give it a try. Rx given for 50 mg tablets daily, #30 no refill. (3) Major depression, chronic: Status: Chronic Asessment and Plan: Major depression with a recent break-up with his . He seems committed to abstaining from alcohol. He denies any suicidality. Continue on the Zoloft. Discharge Plan Disposition Patient Disposition: HOME Condition: Improving Discharge Details Chief Complaint: ETOHWithdr Clinical Impression: Alcohol withdrawal Reason For Visit: ALCOHOL WITHDRAWAL, HALLUCINATIONS Admit Date/Time: 06/10/19 18:20 Admit Provider: Martin Dewitt Attending Provider: Martin Dewitt Primary Care Provider: Chasity Teixeira ED Provider: Sailaja Cochran Hospital Course Hospital Course: This is a 38-year-old man with chronic problems with alcohol use. Apparently he has been drinking since he was a teenager. His alcohol use increased recently after a break-up with his . He was treated as an inpatient at [facility] around 01/04/2019. He tried Alcoholics Anonymous as an outpatient but failed when connection with his sponsor broke down. Just prior to admission he had tried cutting back on alcohol and developed tremors and delirium. His father brought him in to the emergency room for evaluation and he was admitted. He was placed on CIWA protocol and had scheduled Librium. His scores peaked at around 10 for which she was medicated and gradually his tremor and delirium cleared. He is now back to baseline. He has been evaluated by [facility] human services and the plan is for him to enroll in an intensive outpatient program as well as a program through his quaker. He is being discharged to home to live with his parents will keep an eye on him. Home Meds and New Rx's Prescriptions: New multivitamin [Multiple Vitamins] Tablet 1 tab PO DAILY Qty: 100 RF: 4 naltrexone 50 mg tablet 50 mg PO DAILY Qty: 30 RF: 0 Continued ondansetron 4 MG tablet,disintegrating 4 mg PO TID PRN PRN (Reason: Nausea / Vomiting) Qty: 15 RF: 0 sertraline [Zoloft] 100 mg Tablet 100 mg PO DAILY RF: 0 Discharge Instructions Instructions: Alcohol Withdrawal (ED) Activity:: Activity as Tolerated Equipment/Supplies:: No Equipment Needed Diet:: As Tolerated Discharge Orders Discharge Orders: Discharge Order (Routine); Ordered 06/13/19 Ordered By: Grupo Stone Discharge Data Discharge Date/Time-TO BE ENTERED AT DEPARTURE: 06/13/19 11:39 DS: Summary Status at Discharge Functional status at discharge: independent ambulation Overall status at discharge: patient is back to baseline Mental Status: mental status grossly normal Speech and Movement: speech and movement normal Mood: congruent mood Affect: blunted Exam Narrative Exam Narrative: On exam he is dressed to go home. He is sitting up and walking around the unit without difficulty. He has no tremor and no other neurologic deficits. Psych Mental Status: mental status grossly normal Speech and Movement: speech and movement normal Mood: congruent mood Affect: blunted DS: Data Vitals/I&O Vitals and I&O: Vital Signs Temperature 36.6 C 06/13/19 00:00 Temperature Source Temporal Artery Scan 06/13/19 00:00 Pulse 71 06/13/19 00:00 Pulse Rhythm Regular 06/13/19 08:47 Pulse 77 06/12/19 15:56 Respiratory Rate 18 06/13/19 00:00 Respiratory Effort 06/13/19 08:47 Respiratory Depth Normal 06/13/19 00:00 Respiratory Pattern Normal 06/13/19 00:00 Blood Pressure 125/87 06/13/19 00:00 Blood Pressure Mean 99 06/13/19 00:00 Blood Pressure Position Sitting 06/11/19 19:45 Pulse Oximetry 97 06/13/19 00:00 Oxygen Delivery Method Room Air 06/12/19 07:41 Oxygen Flow Rate 0 06/12/19 07:41 Pain Level 0 06/13/19 11:39 Comment 06/11/19 12:42 Intake & Output 06/12/19 06/13/19 06/13/19 23:59 11:59 23:59 Intake Total 257 / 2015.667 240 / 240 Balance 257 / 40.667 240 / 240 Intake: Oral 1056 240 / 240 Other: Urine Appearance Clear Comment up to med surg bathroom to void Voiding Methods Toilet [facility] Medical History Alcohol abuse (Chronic) Major depression, chronic (Chronic) Social History Smoking/Tobacco Use Status: Never Alcohol Intake: current Alcohol Intake frequency: 3 or more drinks per day Alcohol type: wine Drug use: Never Substance use type: does not use Do you feel safe at home: Yes Do you feel safe in your relationship?: Yes
== END 2019-06-13 11:39 | disposition home or self-care (01) | DRG 897 ==
LOC: ER 18:24 → ICU 21:30
PROVIDERS: Internal Medicine; Physician Assistant; Admitting Provider Family Medicine; Emergency Provider Physician Assistant; PCP Nurse Practitioner Family; Visit Provider Family Medicine
DX: F10.231 Alcohol dependence with withdrawal delirium (principal); K70.10 Alcoholic hepatitis without ascites; F10.280 Alcohol dependence with alcohol-induced anxiety disorder; F32.9 Major depressive disorder, single episode, unspecified; F17.220 Nicotine dependence, chewing tobacco, uncomplicated; E87.6 Hypokalemia; R46.0 Very low level of personal hygiene; Z63.5 Disruption of family by separation and divorce
CPT/HCPCS: 36415; 80048; 80053; 80076; 80307; 85027; 93005; 96365; 96375; 96376; 99223; 99232; 99239; 99285; 70450; 76700; 80320; 81003; 83735; 84100; 85025; 85610; 93010; J2060

== ENCOUNTER 2020-02-13 21:37 | Outpatient (REF) | payer OTHER, SELFPAY ==
[2020-02-13 19:38] LABS: HCT 41.1 % (40.0-50.0); HGB 13.7 g/dL (13.5-17.5); MCH 32.9 pg (27.0-33.0); MCHC 33.3 % (32.0-36.0); MCV 98.6 fL (80-95); MPV 10.4 fL (8.0-11.0); Platelet Count 313 10^3/uL (130-400); RBC 4.17 10^6/uL (4.36-5.78); RDW 12.5 % (11.8-14.1); RDW-SD 45.3 fL; WBC 7.13 10^3/uL (4.4-10.8)
[2020-02-13 20:01] LABS: ALT 31 U/L (16-63); AST 30 U/L (15-37); Albumin 3.7 g/dL (3.4-5.0); Alkaline Phosphatase 70 U/L (46-116); Anion Gap 10.5 mmol/L (3-11); BUN 7 mg/dL (7-18); Bilirubin, Total 0.7 mg/dL (0.2-1.0); CO2 26.5 mmol/L (21.0-32.0); CREATININE 0.93 mg/dL (0.70-1.30); Calcium 9.6 mg/dL (8.5-10.1); Chloride 103 mmol/L (98-107); GGT 98 U/L (15-85); Glucose 91 mg/dL (74-106); Potassium 4.2 mmol/L (3.5-5.1); Sodium 140 mmol/L (136-145)
== END 2020-02-13 21:57 ==
LOC: NCHCN 21:37
PROVIDERS: PCP Nurse Practitioner Family; Visit Provider Physician Assistant
DX: Z00.00 Encounter for general adult medical examination without abnormal findings (principal); F10.10 Alcohol abuse, uncomplicated; F41.8 Other specified anxiety disorders; L25.9 Unspecified contact dermatitis, unspecified cause; L71.8 Other rosacea
CPT/HCPCS: 80053; 85027; 82977; 85610

== ENCOUNTER 2020-04-16 13:42 | Observation (INO) | payer OTHER, SELFPAY ==
[2020-04-16 13:47] VITALS: BP 127/100; PULSE 84; RESP 12; TEMP 36.4; O2SAT 94
--- NOTE | 2020-04-16 14:06 | ED.GENADUL_ITS ---
Discharge Plan Disposition Patient Disposition: [facility] INPATIENT Condition: Poor Discharge Details Clinical Impression: Alcohol intoxication, Depression with suicidal ideation Admit Date/Time: 04/16/20 19:38 Admit Provider: Martin Walker Attending Provider: Martin Walker Primary Care Provider: Chasity Teixeira ED Provider: Sofia Perry Medical Decision Making <ANTONY Lauren - Last Filed: 04/16/20 15:29> 39-year-old gentleman with history of alcohol abuse, depression, anxiety, presents requesting detox from alcohol and reports that he is vaguely suicidal. He does not want to act upon his suicidal ideation. He has a mild headache but otherwise has no acute medical concerns or complaints. Medically he appears well, nontoxic. No active signs of withdrawal. Last drink was approximately 9 AM. Will obtain routine laboratory values for medical screening examination so that he may then be evaluated by our [facility] human service team for potential placement. In the meantime will place a care management consultation for a behavioral plan and have a rehab women's swim coach speak with the patient as well. We will give a liter of IV fluid as well. No clear indication to initiate any withdrawal therapy. women's swim coach presents to the ER to evaluate patient. Please see their note. Chronic values do not reveal any obvious emergent process that would inhibit patient being medically cleared. Given his alcohol is greater than 300, we will need to await a more appropriate level for [facility] human services consultation. Patient is showing no signs of withdrawal. Medical Records Medical records reviewed: Yes I reviewed the patient's medical records. Lab Data Lab results reviewed: Yes I reviewed the patient's lab results. Lab results narrative: Laboratory Tests Range/Units 04/16/20 04/16/20 04/16/20 14:26 14:26 14:26 WBC (4.4-10.8) 10^3/uL 6.78 RBC (4.36-5.78) 10^6/uL 4.73 Hgb (13.5-17.5) g/dL 15.7 Hct (40.0-50.0) % 46.0 MCV (80-95) fL 97.3 H MCH (27.0-33.0) pg 33.2 H MCHC (32.0-36.0) % 34.1 RDW (11.8-14.1) % 15.6 H Plt Count (130-400) 10^3/uL 377 MPV (8.0-11.0) fL 8.7 Immature Gran % 0.0 Neutrophils % 64.3 Lymphocytes % 23.7 Monocytes % 6.0 Eosinophils % 5.0 Basophils % 1.0 Nucleated RBC % % 0 Absolute Neutrophils (1.2-6.7) 10^3/uL 4.35 Absolute Lymphocytes (1.2-3.4) 10^3/uL 1.61 Absolute Monocytes (0.1-0.8) 10^3/uL 0.41 Absolute Eosinophils (0.0-0.7) 10^3/uL 0.34 Absolute Basophils (0.0-0.2) 10^3/uL 0.07 Sodium (136-145) mmol/L 141 Potassium (3.5-5.1) mmol/L 4.0 Chloride (98-107) mmol/L 103 Carbon Dioxide (21.0-32.0) mmol/L 26.3 Anion Gap (3-11) mmol/L 11.7 H BUN (7-18) mg/dL 3 L Creatinine (0.70-1.30) mg/dL 0.76 Estimated GFR/1.73 m2 (mL/min/1.73m2) >= 60.00 Glucose (74-106) mg/dL 102 Calcium (8.5-10.1) mg/dL 8.6 Total Bilirubin (0.2-1.0) mg/dL 0.4 AST (15-37) U/L 64 H ALT (16-63) U/L 47 Alkaline Phosphatase (46-116) U/L 94 Total Protein (6.4-8.2) g/dL 7.6 Albumin (3.4-5.0) g/dL 3.7 TSH (0.36-3.74) uIU/mL 1.31 Salicylates (2.8-20.0) mg/dL < 2.8 Urine Opiates Screen (Negative) Urine Methadone Screen (Negative) Acetaminophen (10-30) ug/mL < 2 Ur Barbiturates Screen (Negative) Ur Tricyclics Screen (Negative) Ur Amphetamines Screen (Negative) U Benzodiazepines Scrn (Negative) Urine Cocaine Screen (Negative) Ur THC Screen (Negative) Ethyl Alcohol (<3) mg/dL > 300.0 Range/Units 04/16/20 14:35 WBC (4.4-10.8) 10^3/uL RBC (4.36-5.78) 10^6/uL Hgb (13.5-17.5) g/dL Hct (40.0-50.0) % MCV (80-95) fL MCH (27.0-33.0) pg MCHC (32.0-36.0) % RDW (11.8-14.1) % Plt Count (130-400) 10^3/uL MPV (8.0-11.0) fL Immature Gran % Neutrophils % Lymphocytes % Monocytes % Eosinophils % Basophils % Nucleated RBC % % Absolute Neutrophils (1.2-6.7) 10^3/uL Absolute Lymphocytes (1.2-3.4) 10^3/uL Absolute Monocytes (0.1-0.8) 10^3/uL Absolute Eosinophils (0.0-0.7) 10^3/uL Absolute Basophils (0.0-0.2) 10^3/uL Sodium (136-145) mmol/L Potassium (3.5-5.1) mmol/L Chloride (98-107) mmol/L Carbon Dioxide (21.0-32.0) mmol/L Anion Gap (3-11) mmol/L BUN (7-18) mg/dL Creatinine (0.70-1.30) mg/dL Estimated GFR/1.73 m2 (mL/min/1.73m2) Glucose (74-106) mg/dL Calcium (8.5-10.1) mg/dL Total Bilirubin (0.2-1.0) mg/dL AST (15-37) U/L ALT (16-63) U/L Alkaline Phosphatase (46-116) U/L Total Protein (6.4-8.2) g/dL Albumin (3.4-5.0) g/dL TSH (0.36-3.74) uIU/mL Salicylates (2.8-20.0) mg/dL Urine Opiates Screen (Negative) Negative Urine Methadone Screen (Negative) Negative Acetaminophen (10-30) ug/mL Ur Barbiturates Screen (Negative) Negative Ur Tricyclics Screen (Negative) Negative Ur Amphetamines Screen (Negative) Negative U Benzodiazepines Scrn (Negative) Negative Urine Cocaine Screen (Negative) Negative Ur THC Screen (Negative) Negative Ethyl Alcohol (<3) mg/dL <ANTONY Miller - Last Filed: 04/16/20 23:39> Care transition myself from Salomon Reyes PA-C with evaluation of mental health pending. In brief, patient is a pleasant 39-year-old male with history of depression suicidal ideation and alcoholism. He came in today intoxicated and endorsing thoughts of self-harm. Patient is unable to be evaluated by mental health even though he is clinically sober. I did have tracer bullet section supervisor recheck and patient is currently at 0.23. Mental health advised patient to be at 0.00. Patient denies any active feelings of withdrawal. However, I did find that if he begins having any symptoms to let us know, we will keep him calm in the department. Continues to be voluntary. [facility] protocol ordered. Patient continues to be voluntary. Given his demographic, risk factors (loss of job, ETOH abuse, lack of social support), he is very likely to be admitted once psych is able to assess him after ETOH 0. Discussed with Dr. Walker. He agrees to admission for continued to monitor until psych is able to evaluate for suicidal ideations. HPI <ANTONY Lauren - Last Filed: 04/16/20 15:29> General Mode of arrival: ambulatory . Date/Time Provider Initiated Documentation: 04/16/20 13:43 . Limitations to Documentation: no limitations . Information obtained by: patient and family . HPI Narrative: This is a 39-year-old gentleman with history of alcohol abuse, depression, anxiety, presented to the ER with his father. Patient reports that he has been drinking approximately half of a box of wine daily for the past 3 weeks or so. Previous ly he had gone to detox and been sober for a few months. His last drink was around 9:00 this morning. He denies any drug use whatsoever. He reports a mild global headache but denies any other medical complaints or concerns. Denies recent illness or trauma. Patient admits to anxiety, depression, vague suicidal ideations. He reports that he would kill himself with a bullet. He did have access to guns until this morning when he had people take the guns out of his house. He denies any homicidal ideation. Patient has never had a withdrawal seizure. Patient admits that he has now started to withdrawal today. Related Data Home Medications Medication Instructions Recorded Confirmed multivitamin [Multiple Vitamins] 1 tab PO DAILY #100 tab 06/13/19 04/16/20 escitalopram oxalate [Lexapro] 10 mg PO DAILY 04/16/20 04/16/20 folic acid 1 mg PO DAILY 04/16/20 04/16/20 hydroxyzine pamoate [Vistaril] 25 mg PO PRN PRN 04/16/20 04/16/20 magnesium oxide [MagOx] 400 mg PO DAILY 04/16/20 04/16/20 vitamin B complex [Vitamin B-100] 100 tab PO DAILY 04/16/20 04/16/20 Previous Rx's Medication Instructions Recorded multivitamin [Multiple Vitamins] 1 tab PO DAILY #100 tab 06/13/19 Allergies Allergy/AdvReac Type Severity Reaction Status Date / Time No Known Allergies Allergy Unverified 04/16/20 13:53 General Stated Complaint: PsychEval HIMA: 2 Review of Systems <ANTONY Lauren - Last Filed: 04/16/20 15:29> Constitutional Constitutional: Denies fatigue, Denies fever(s) and Reports headache(s) Eyes Eyes: Denies change in vision ENT Ears, Nose, Mouth, and Throat: Reports headache(s) and Denies neck pain Cardiovascular Cardiovascular: Denies chest pain and Denies dyspnea Respiratory Respiratory: Denies cough and Denies dyspnea Gastrointestinal Gastrointestinal: Denies abdominal pain, Denies nausea and Denies vomiting Genitourinary Genitourinary: Denies dysuria Musculoskeletal Musculoskeletal: Denies back pain, Denies neck pain and Denies tingling Integumentary/Breasts Skin/Breast: Denies rash Neurologic Neurologic: Reports headache(s) and Denies tingling Endocrine Endocrine: Denies fatigue PFS <ANTONY Lauren - Last Filed: 04/16/20 15:29> Medical History Alcohol abuse Major depression, chronic Social History Smoking/Tobacco Use Status: Current every day Alcohol Intake: current Alcohol Intake frequency: 3 or more drinks per day Alcohol type: wine Drug use: Never Substance use type: does not use Do you feel safe at home: No (SI) Do you feel safe in your relationship?: Yes Exam <ANTONY Lauren - Last Filed: 04/16/20 15:29> Const General: cooperative, healthy appearing, comfortable and no acute distress Orientation: alert, awake and oriented x3 HENMI Head: normal to inspection, normocephalic and atraumatic Mouth: moist mucous membranes Eyes General: appearance normal, both eyes and all related structures Eyelids: eyelids normal Conjunctivae: conjunctivae normal Neck Neck: normal visual inspection, full ROM, trachea midline, supple and nontender Resp Effort & Inspection: normal respiratory effort and able to speak in complete sentences Auscultation: clear to auscultation bilaterally Cardio Rate: regular rate Rhythm: regular rhythm GI Palpation: soft and nontender Back/Spine/Pelvis Back: No back tenderness Skin General skin exam: no rashes or lesions noted Neuro General: patient alert, patient awake, patient oriented x3, moves all extremities and no focal motor deficits Cranial Nerves: CN's II-XI intact bilaterally Cognition: normal cognition Speech: speech normal Gait: normal gait Motor: muscle tone normal throughout Sensory Exam: no sensory deficits noted Extrem General: normal to inspection, full ROM and capillary refill normal Psych Appearance: grossly normal Mental Status: mental status grossly normal Mood: dysthymic mood Affect: sad Attitude: cooperative Thought Process: normal Thought Content: suicidality Insight: fair Judgment: fair Course <ANTONY Lauren - Last Filed: 04/16/20 15:29> Vital Signs Vital signs: Vital Signs Temperature 36.4 C L 04/16/20 13:47 Pulse 84 04/16/20 13:47 Respiratory Rate 12 04/16/20 13:47 Blood Pressure 127/100 H 04/16/20 13:47 Pulse Oximetry 94 04/16/20 13:47 Temperature 36.4 C L 04/16/20 13:47 Temperature Source Tympanic 04/16/20 13:47 Pulse 84 04/16/20 13:47 Respiratory Rate 12 04/16/20 13:47 Respiratory Effort Non-Labored 04/16/20 13:52 Blood Pressure 127/100 H 04/16/20 13:47 Blood Pressure Position Sitting 04/16/20 13:47 Pulse Oximetry 94 04/16/20 13:47 Oxygen Delivery Method Room Air 04/16/20 13:47 Oxygen Flow Rate 0 04/16/20 13:47 Pain Level 0 04/16/20 13:47 Sign Out <ANTONY Lauren - Last Filed: 04/16/20 15:29> Sign Out Data: Sign Out Comment: Patient is awaiting clinical sobriety so that he may have his [facility] human services evaluation. Last updated by Luis Felipe Reyes PA at 04/16/20 15:30
--- NOTE | 2020-04-16 14:27 | PDOC.CMSAFED ---
- If Service Date Differs Date of service: 04/16/20 Time of Service: 14:27 Care Management Safety Plan Chief Complaint: Santiago is a 39 year old male who presents to the ED for alcohol intoxication and suicidal ideation. CM will respond to ED to assess patient after patient has been medically cleared and assessed by screener. If screener deems patient meets criteria for psychiatric stabilization, CM will facilitate interdepartmental huddle with [facility] screener for safety planning considerations and meet with patient to review [facility] policy and safety plan, establish individual wishes for treatment and maintain patient rights. In the interim, please note safety plan below to guide patient care while awaiting further assessment in the ED. SAFETY PLAN: 1. Will remain on suicide precautions and in paper clothes 2. Will remain in room under direct supervision of one-on-one staff at all times provided by CPSO, ADAIR, SAND SHOVELER wash oil pump operator helper. 3. May have paper cups, plates, finger foods as well as a cardboard spoon with which to eat meals. 4. Follow [facility] Management of the Admitted Behavioral Health Patient policy. 5. Comfort bath system only while in the ED. If moved to Med/Surg, will be allowed to shower with supervision at nursing discretion. 6. No personal belongings 7. Visitors-Limited to his father. 8. Activities: Soft tip markers, paper, television if available, and other activities at nursing discretion. 9. Bathroom privileges: While in the ED, must be accompanied by staff. If patient is moved to Med/Surg, he will be allowed to use the bathroom in the room without supervision. 10. Phone: No phone privileges at this time. 11. Due to VOLUNTARY status, if patient wishes to leave [facility], the [facility] tannery worker must be contacted to evaluate patient prior to patient exiting the building. If deemed appropriate for inpatient psychiatric care, safety plan will be established with patient and care team to adhere to patient goals, identify restrictions based on behavioral status, address nutrition, and determine allowed personal belongings, tools for hygiene and personal care. As well plan will determine level of activity including ambulation, level of supervision, visitors, and determine privileges based on level of acuity, behaviors and level of engagement by patient.
[2020-04-16 14:34] LABS: Absolute Basophil Count 0.07 10^3/uL (0.0-0.2); Absolute Eosinophil Count 0.34 10^3/uL (0.0-0.7); Absolute Lymphocyte Count 1.61 10^3/uL (1.2-3.4); Absolute Monocyte Count 0.41 10^3/uL (0.1-0.8); Absolute Neutrophil Count 4.35 10^3/uL (1.2-6.7); HGB 15.7 g/dL (13.5-17.5); Lymphocytes % 23.7; MCH 33.2 pg (27.0-33.0); MCHC 34.1 % (32.0-36.0); MCV 97.3 fL (80-95); MPV 8.7 fL (8.0-11.0); Neutrophils % 64.3; Nucleated RBC 0 %; Platelet Count 377 10^3/uL (130-400); RBC 4.73 10^6/uL (4.36-5.78); RDW 15.6 % (11.8-14.1); RDW-SD 55.6 fL; WBC 6.78 10^3/uL (4.4-10.8)
[2020-04-16 14:42] VITALS: BP 122/99
[2020-04-16] MEDS: Normal Saline 1,000 ML 1000 ML IV (14:47)
[2020-04-16 14:53] LABS: Salicylate < 2.8 mg/dL (2.8-20.0)
[2020-04-16 14:56] LABS: *AMPHETAMINES SCREEN URINE Negative (Negative); *BARBITURATES SCREEN URINE Negative (Negative); *BENZODIAZEPINES SCREEN URINE Negative (Negative); Cannabinoids THC Negative (Negative); Cocaine Screen,Urine Negative (Negative); METHADONE URINE SCREEN Negative (Negative); OPIATES URINE SCREEN Negative (Negative)
[2020-04-16 14:57] LABS: ALT 47 U/L (16-63); AST 64 U/L (15-37); Albumin 3.7 g/dL (3.4-5.0); Alkaline Phosphatase 94 U/L (46-116); Anion Gap 11.7 mmol/L (3-11); BUN 3 mg/dL (7-18); Bilirubin, Total 0.4 mg/dL (0.2-1.0); CO2 26.3 mmol/L (21.0-32.0); CREATININE 0.76 mg/dL (0.70-1.30); Calcium 8.6 mg/dL (8.5-10.1); Chloride 103 mmol/L (98-107); Glucose 102 mg/dL (74-106); Sodium 141 mmol/L (136-145); TSH 1.31 uIU/mL (0.36-3.74); Total Protein 7.6 g/dL (6.4-8.2)
[2020-04-16 14:59] LABS: Tricyclic Antidepressants Negative (Negative)
[2020-04-16 15:05] LABS: ETHANOL BLOOD > 300.0 mg/dL (<3)
[2020-04-16 15:09] LABS: Acetaminophen < 2 ug/mL (10-30)
--- NOTE | 2020-04-16 15:09 | NUR.NOTE ---
Nursing Note: Evie from [facility] recovery in to see pt at approx 1445. Care plan to be updated by CM to include father as visitor. Provider agrees and is aware.
[2020-04-16] MEDS: LORazepam 0.5 MG TAB PO (18:53)
--- NOTE | 2020-04-16 19:30 | W.PM.HP.N ---
Date of service: 04/16/20 Time of Service: 19:30 Assessment and Plan Assessment and plan (1) Depression with suicidal ideation: Status: Acute Assessment and plan: Depression. Will place on precautions, pending MH eval. presumably in AM as still has sig. EtOH on board. EtOH: CIWA, banana bag History of Present Illness History of Present Illness Chief Complaint: SUICIDAL Narrative: 39 male with h/o alcohol abuse and depression. Completed rehab about a month ago, drinking again past three weeks (about a liter/day of wine). Here tonight with one week increasing depression and suicidal thoughts. In ER EtOH> 300, advises unable to assess until zero. Admitted pending definitive psych eval and disposition. Denies w/d seizures or DTs, just gets the shakes Review of Systems All systems reviewed & are unremarkable except as noted in HPI and below PFSH Medical History Alcohol abuse Major depression, chronic Social History Smoking/Tobacco Use Status: Current every day Alcohol Intake: current Alcohol Intake frequency: 3 or more drinks per day Alcohol type: wine Drug use: Never Substance use type: does not use Do you feel safe at home: No (SI) Do you feel safe in your relationship?: Yes Meds Home Medications and Allergies Home Medications Medication Instructions Recorded Confirmed Type multivitamin [Multiple Vitamins] 1 tab PO DAILY #100 tab 06/13/19 04/16/20 Rx escitalopram oxalate [Lexapro] 10 mg PO DAILY 04/16/20 04/16/20 History folic acid 1 mg PO DAILY 04/16/20 04/16/20 History hydroxyzine pamoate [Vistaril] 25 mg PO PRN PRN 04/16/20 04/16/20 History magnesium oxide [MagOx] 400 mg PO DAILY 04/16/20 04/16/20 History vitamin B complex [Vitamin B-100] 100 tab PO DAILY 04/16/20 04/16/20 History Allergies Allergy/AdvReac Type Severity Reaction Status Date / Time No Known Allergies Allergy Unverified 04/16/20 13:53 Exam Narrative Exam Narrative: 122/94, 84, 36.4, 12, 94% RA. HEENT atraumatic; neck supple; lungs clear; heart RRR w/o MRG; abdomen soft NT w/o HSM; extremities w/o edema;; neuro Ox3, lucid, somewhat flat affect, nonfocal Results Labs Result diagrams: 04/16/20 14:26 04/16/20 14:26 Labs: Laboratory Results - last 24 hr 04/16/20 04/16/20 04/16/20 14:26 14:26 14:26 WBC 6.78 RBC 4.73 Hgb 15.7 Hct 46.0 MCV 97.3 H MCH 33.2 H MCHC 34.1 RDW 15.6 H Plt Count 377 MPV 8.7 Immature Gran % 0.0 Neutrophils % 64.3 Lymphocytes % 23.7 Monocytes % 6.0 Eosinophils % 5.0 Basophils % 1.0 Nucleated RBC % 0 Absolute Neutrophils 4.35 Absolute Lymphocytes 1.61 Absolute Monocytes 0.41 Absolute Eosinophils 0.34 Absolute Basophils 0.07 Sodium 141 Potassium 4.0 Chloride 103 Carbon Dioxide 26.3 Anion Gap 11.7 H BUN 3 L Creatinine 0.76 Estimated GFR/1.73 m2 >= 60.00 Glucose 102 Calcium 8.6 Total Bilirubin 0.4 AST 64 H ALT 47 Alkaline Phosphatase 94 Total Protein 7.6 Albumin 3.7 TSH 1.31 Salicylates < 2.8 Urine Opiates Screen Urine Methadone Screen Acetaminophen < 2 Ur Barbiturates Screen Ur Tricyclics Screen Ur Amphetamines Screen U Benzodiazepines Scrn Urine Cocaine Screen Ur THC Screen Ethyl Alcohol > 300.0 04/16/20 14:35 WBC RBC Hgb Hct MCV MCH MCHC RDW Plt Count MPV Immature Gran % Neutrophils % Lymphocytes % Monocytes % Eosinophils % Basophils % Nucleated RBC % Absolute Neutrophils Absolute Lymphocytes Absolute Monocytes Absolute Eosinophils Absolute Basophils Sodium Potassium Chloride Carbon Dioxide Anion Gap BUN Creatinine Estimated GFR/1.73 m2 Glucose Calcium Total Bilirubin AST ALT Alkaline Phosphatase Total Protein Albumin TSH Salicylates Urine Opiates Screen Negative Urine Methadone Screen Negative Acetaminophen Ur Barbiturates Screen Negative Ur Tricyclics Screen Negative Ur Amphetamines Screen Negative U Benzodiazepines Scrn Negative Urine Cocaine Screen Negative Ur THC Screen Negative Ethyl Alcohol Last Vital Signs Temp 36.4 C L 04/16/20 13:47 Pulse 84 04/16/20 13:47 Resp 12 04/16/20 13:47 BP 122/99 H 04/16/20 14:42 Pulse Ox 94 04/16/20 13:47 COVID-19 Screening Have you,or household,traveled outside [place] in last 14 days?: No Had IN PERSON contact w/suspected or confirmed C-19 person: No
[2020-04-16 21:28] VITALS: BP 127/86; PULSE 70; RESP 17; TEMP 36.8; O2SAT 99
[2020-04-16] MEDS: MAGNESIUM SULFATE 8.12 MEQ, MULTIVITAMIN 10 ML, THIAMINE 100 MG, FOLIC ACID 1 MG in Nor... 168.867 MG IV (22:29)
[2020-04-16] MEDS: Normal Saline Flush 10 ML SYR IVP (22:29)
[2020-04-17] MEDS: LORazepam 1 MG TAB PO/SL ×2 (04:08→08:59)
[2020-04-17 07:31] LABS: ETHANOL BLOOD < 3.0 mg/dL (<3)
[2020-04-17 08:13] VITALS: BP 119/68; PULSE 81; RESP 17; TEMP 37.2; O2SAT 96
[2020-04-17] MEDS: Thiamine 100 MG TAB PO (08:43)
[2020-04-17] MEDS: Multivitamin TAB 1 TAB PO (08:44)
[2020-04-17] MEDS: Folic Acid 1 MG TAB PO (08:44)
--- NOTE | 2020-04-17 10:18 | PDOC.CMIN ---
- If Service Date Differs Date of service: 04/17/20 Time of Service: 10:18 Care Management Initial Assess REASON FOR HOSPITALIZATION:: depression with suicidal ideation PAST MEDICAL HISTORY/PAST SURGICAL HISTORY:: Medical History . Alcohol abuse. Major depression, chronic PREVIOUS FUNCTIONAL STATUS/SOCIAL/FAMILY SUPPORTS:: Santiago lives alone in [place], [place]. 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 He does not receive any community services at this time. CURRENT FUNCTIONAL STATUS:: Santiago was laying on the stretcher when CM met with him. He appeared very sad and was teary during much of the conversation.He shared that he had lost his job because of drinking and was upset about it. Santiago stated that he wants to go home. CM informed him that a crisiis screener from [facility] would see him soon to ensure that he is safe. ADVANCE DIRECTIVES:: none on file Has patient been provided with info about the portal/API?: No Did the patient sign up for the portal?: No CODE STATUS:: Full Code INSURANCE COVERAGE / FINANCIAL ISSUES:: [facility] PRIMARY CARE PHYSICIAN:: Chasity Teixeira POTENTIAL DISCHARGE NEEDS:: establishing with outpatient substance abuse counselor. [employer] Acid Etch Operator. Follow up with PCP PATIENT/FAMILY EDUCATION NEEDS:: discharge plan, follow up plan, limitations, Ask Me Three TRANSPORTATION:: via private vehicle with father PLAN:: Santiago will be discharged home with follow up from [facility] . He will establish with an outpatient counselor through [facility] and follow up with his PCP. Santiago will transport via private vehicle with father.
[2020-04-17 11:31] VITALS: BP 131/79; PULSE 70; RESP 17; TEMP 37.4; O2SAT 97
[2020-04-17 12:34] LABS: COVID-19 RT-PCR UVMMC Result Negative (Negative)
--- NOTE | 2020-04-17 14:00 | CMSP_ITS ---
- If Service Date Differs Date of service: 04/17/20 Time of Service: 14:00 Care Management Safety Plan Chief Complaint: Santiago is a 39 year old male who presents to the ED for alcohol intoxication and suicidal ideation. He was recently released from a Rehab program and began drinking a short time later. Santiago is in the process of a painful divorce and lost his job 2 weeks ago,secondary to drinking. CM will facilitate interdepartmental huddle with [facility] screener for safety plann ing considerations and meet with patient to review [facility] policy and safety plan, establish individual wishes for treatment and maintain patient rights. Please note safety plan below to guide patient care : SAFETY PLAN: 1. Will remain on suicide precautions and in paper clothes 2. Will remain in room under direct supervision of one-on-one staff at all times provided by [employer], CHAIN MAKER LOOM CONTROL, [employer] business continuity global director. 3. May have paper cups, plates, finger foods as well as a cardboard spoon with which to eat meals. 4. Follow [facility] Management of the Admitted Behavioral Health Patient policy. 5. May shower with supervision at nursing discretion. 6. No personal belongings 7. Visitors-Limited to his father. 8. Activities: Soft tip markers, paper, television if available, and other activities at nursing discretion. 9. Bathroom privileges: May use the bathroom in the room without supervision. 10. Phone: May speak to father and Telephony Engineer via phone 11. Due to VOLUNTARY status, if patient wishes to leave [facility], the [facility] reworker must be contacted to evaluate patient prior to patient exiting the building. If deemed appropriate for inpatient psychiatric care, safety plan will be established with patient and care team to adhere to patient goals, identify restrictions based on behavioral status, address nutrition, and determine allowed personal belongings, tools for hygiene and personal care. As well plan will determine level of activity including ambulation, level of supervision, visitors, and determine privileges based on level of acuity, behaviors and level of engagement by
--- NOTE | 2020-04-17 15:09 | DSE_ITS ---
Date of service: 04/17/20 Time of Service: 15:09 DS: Diagnosis Discharge Diagnosis (1) Depression with suicidal ideation: Status: Acute Discharge Plan Disposition Patient Disposition: HOME Condition: Improving Discharge Details Reason For Visit: SUICIDAL, ETOH INTOXICATION Admit Date/Time: 04/16/20 19:38 Admit Provider: Martin Walker Attending Provider: Martin Walker Primary Care Provider: Chasity Teixeira Hospital Course Hospital Course: This is a 39 male with history of alcohol abuse and depression who completed rehab about a month ago, drinking again past three weeks (about a liter/day of wine). Presented to the ED with one week increasing depression and suicidal thoughts. In the ED EtOH > 300 so he was admitted pending psychiatric evaluation that will be scheduled when he is clinically sober. Overnight he remained clinically stable and in the morning was denying suicidal ideation and requesting discharge to home for outpatient follow up. Mental health evaluation completed with outpatient follow up arranged. Home Meds and New Rx's Prescriptions: Continued magnesium oxide [MagOx] 400 mg (241.3 mg magnesium) Tablet 400 mg PO DAILY RF: 0 vitamin B complex Tablet 100 tab PO DAILY RF: 0 folic acid 1 mg Tablet 1 mg PO DAILY RF: 0 hydroxyzine pamoate [Vistaril] 25 mg Capsule 25 mg PO PRN PRNRF: 0 escitalopram oxalate [Lexapro] 10 mg Tablet 10 mg PO DAILY RF: 0 multivitamin [Multiple Vitamins] Tablet 1 tab PO DAILY Qty: 100 RF: 4 Discharge Instructions Instructions: Depression (DC), Abuse of Alcohol (DC) Additional Instructions: Do not drink alcohol. Take medications as directed. Follow up with asset recovery specialist as discussed. Stand Alone Forms: Nursing Discharge Form Referrals: Soraya Jose [NURSE PRACTITIONER] - 04/25/20 2:45 pm Activity:: Activity as Tolerated Equipment/Supplies:: No Equipment Needed Diet:: As Tolerated Discharge Orders Discharge Orders: Discharge Order (Routine); Ordered 04/17/20 Ordered By: Klaudia Cutler DS: Summary Status at Discharge Functional status at discharge: independent ambulation Overall status at discharge: patient is back to baseline Mental Status: mental status grossly normal Speech and Movement: speech and movement normal Mood: congruent mood Affect: normal affect Exam Const General: cooperative, comfortable and no acute distress Nutritional Appearance: average body habitus Orientation: alert, awake and oriented x3 HENMT Head: normal to inspection, normocephalic and atraumatic Resp Effort & Inspection: normal respiratory effort Auscultation: clear to auscultation bilaterally Cardio Rate: regular rate Rhythm: regular rhythm GI Inspection: normal to inspection Palpation: soft Auscultation: normal bowel sounds Skin General skin exam: no rashes or lesions noted Neuro General: patient alert, patient awake, patient oriented x3, moves all extremities and no focal motor deficits Cranial Nerves: CN's II-XI intact bilaterally Extrem General: normal to inspection and full ROM Psych Mental Status: mental status grossly normal Speech and Movement: speech and movement normal Mood: congruent mood Affect: normal affect DS: Data Vitals/I&O Vitals and I&O: Vital Signs Temperature 37.4 C 04/17/20 11:31 Temperature Source Tympanic 04/17/20 11:31 Pulse 70 04/17/20 11:31 Pulse Rhythm Regular 04/17/20 08:46 Respiratory Rate 17 04/17/20 11:31 Respiratory Effort Non-Labored 04/17/20 08:46 Respiratory Depth Normal 04/17/20 08:46 Respiratory Pattern Normal 04/17/20 08:46 Blood Pressure 131/79 04/17/20 11:31 Blood Pressure Position Sitting 04/16/20 13:47 Pulse Oximetry 97 04/17/20 11:31 Oxygen Delivery Method Room Air 04/17/20 11:31 Oxygen Flow Rate 0 04/17/20 11:31 Pain Level 0 04/17/20 11:31 Intake & Output 04/16/20 04/17/20 04/17/20 23:59 11:59 23:59 Intake Total 1000 / 1000 1253.2 / 1253.2 Balance 1000 / 1000 1253.2 / 1253.2 Weight 74.843 kg Intake: IV 1000 / 1000 1013.2 / 1013.2 Oral 240 / 240 Other: Urine Color Yellow Urine Appearance Clear Clear Urine Odor Normal Voiding Methods Toilet Data Completed and Pending Labs on day of discharge: Labs from last 24 hours 04/17/20 04/16/20 04/16/20 06:55 21:15 14:26 Salicylates < 2.8 Acetaminophen < 2 Ethyl Alcohol < 3.0 COVID-19 PCR Negative Nasopharyn COVID-19 PCR Not Applicable Ref Test Perform Site [place] [facility] PFSH Medical History Alcohol abuse Major depression, chronic Social History Smoking/Tobacco Use Status: Current every day Alcohol Intake: current Alcohol Intake frequency: 3 or more drinks per day Alcohol type: wine Drug use: Never Substance use type: does not use Do you feel safe at home: No (SI) Do you feel safe in your relationship?: Yes
== END 2020-04-17 15:45 | disposition home or self-care (01) ==
LOC: ER 21:19 → MS 21:27
PROVIDERS: Physician Assistant; Admitting Provider General Practice; Emergency Provider Physician Assistant; PCP Nurse Practitioner Family; Visit Provider General Practice
DX: F32.9 Major depressive disorder, single episode, unspecified (principal); R45.851 Suicidal ideations; F10.129 Alcohol abuse with intoxication, unspecified; Y90.8 Blood alcohol level of 240 mg/100 ml or more
CPT/HCPCS: 36415; 80053; 80307; 96360; 99217; 99218; 99221; 99285; U0003; 80320; 80329; 84443; 85025; 99284; G0378

== ENCOUNTER 2025-05-20 08:55 | Outpatient (REF) | payer SELFPAY ==
[2025-05-20 14:40] LABS: Abs Immature Grans 0.01 10^3/uL (0.0-0.06); HCT 41.8 % (40.0-50.0); HGB 14.0 g/dL (13.5-17.5); Immature Grans % 0.2 %; MCH 30.0 pg (27.0-33.0); MCHC 33.5 % (32.0-36.0); MCV 90 fL (80-95); MPV 10.0 fL (8.0-11.0); Platelet Count 272 10^3/uL (130-400); RBC 4.67 10^6/uL (4.36-5.78); RDW 11.9 % (11.8-14.1); RDW-SD 39.1 fL; WBC 5.68 10^3/uL (4.4-10.8)
[2025-05-20 14:59] LABS: ALT 65 U/L (10-49); AST 49 U/L (<34); Albumin 4.3 g/dL (3.4-5.0); Alkaline Phosphatase 48 U/L (46-116); Anion Gap 8.1 mmol/L (3-11); BUN 19 mg/dL (9-23); Bilirubin, Total 0.60 mg/dL (0.2-1.2); CO2 29.9 mmol/L (20.0-31.0); Calcium 9.5 mg/dL (8.3-10.6); Chloride 106 mmol/L (98-107); Cholesterol 209 mg/dL (<200); Glucose 96 mg/dL (74-106); HDL Cholesterol 71 mg/dL (>40); Potassium 4.3 mmol/L (3.5-5.1); Sodium 144 mmol/L (136-145); Total Protein 6.5 g/dL (5.7-8.2)
== END 2025-05-20 08:56 | disposition home or self-care (01) ==
LOC: NCHCN 08:55
PROVIDERS: PCP Nurse Practitioner Family; Visit Provider Nurse Practitioner Family
DX: Z13.220 Encounter for screening for lipoid disorders (principal); R79.89 Other specified abnormal findings of blood chemistry
CPT/HCPCS: 80053; 80061; 85025